=== PATIENT | female | born 1950 | race African-American/Black ===

== ENCOUNTER 2016-08-18 17:20 | Emergency (ER) ==
[2016-08-18 17:39] LABS: URINE SOURCE CLEAN CATCH
[2016-08-18 18:05] LABS: BILIRUBIN URINE NEGATIVE (NEGATIVE); BLOOD URINE NEGATIVE (NEGATIVE); CLARITY SL. CLOUDY (CLEAR); COLOR AMBER; GLUCOSE URINE NEGATIVE (NEGATIVE); LEUKOCYTES URINE 2+ (NEGATIVE); NITRITE URINE NEGATIVE (NEGATIVE); PH URINE 6.5; PROTEIN URINE 1+(30 mg/dL) mg/dL (NEGATIVE); SP GRAVITY URINE 1.015
[2016-08-18 18:17] LABS: URINE CRYSTAL URIC ACID PRESENT /HPF; URINE CULTURE PL NEEDED? YES; URINE EPITHELIAL CELLS >10 /HPF (<10)
[2016-08-18 18:18] LABS: UROBILINOGEN URINE 3+(8 mg/dL)
[2016-08-18 18:29] LABS: MANUAL DIFF NEEDED? NO
[2016-08-18 18:30] LABS: BASO% 0.4 % (0.0-0.8); EOS# 0.08 X1000 (0.0-0.7); EOS% 0.8 % (0.0-10.0); HEMOGLOBIN 10.3 g/dL (12.0-16.0); IMM GRAN# 0.01 X1000 (0.0-0.04); IMM GRAN% 0.1 % (0.0-0.5); LYMPH# 1.33 X1000 (1.2-3.4); MCH 27.3 PG (27-31); MCHC 33.2 g/dL (33-37); MCV 82.2 FL (81-99); MONO# 1.01 X1000 (0.11-0.59); MONO% 9.9 % (1.7-9.3); MPV 9.1 FL (7.4-10.4); NEUT% 75.8 % (42.2-75.2); PLT 272 X1000 (130-400); RBC 3.77 XMIL (4.2-5.4)
[2016-08-18 19:10] LABS: ALBUMIN 3.6 g/dL (3.5-5.0); POTASSIUM 3.3 mmol/L (3.5-5.1); TOTAL BILIRUBIN 0.5 mg/dL (0.20-1.00); TOTAL PROTEIN 7.6 g/dL (6.3-8.3)
--- NOTE | 2016-08-18 20:17 | PROVIDER DOCUMENTATION ---
HPI-Abdominal Pain/GI Problem - General Chief Complaint: Epigastric Pain Stated Complaint: ABD PAIN/UPPER Time Seen by Provider: 08/18/16 18:51 Source: patient Allergies/Adverse Reactions: Patient Allergies Allergy/AdvReac Type Severity Reaction Status Date / Time No Known Allergies Allergy Verified 08/18/16 18:01 Home Medications: Home Medication List Medication Instructions Recorded Confirmed Last Taken Type Aspirin 325 mg PO DAILY 02/22/16 02/23/16 02/23/16 08:00 History Diclofenac Sodium 50 mg PO DAILY 02/22/16 02/23/16 02/23/16 08:00 History Metoprolol [Lopressor] 100 mg PO BID 02/22/16 02/23/16 02/23/16 08:00 History Ranitidine [Zantac] 300 mg PO QHS 02/22/16 02/23/16 02/23/16 08:00 History Triamterene/Hydrochlorothiazid 1 each PO DAILY 02/22/16 02/23/16 02/23/16 08:00 History [Triamterene-Hctz 37.5-25 mg Cp] Hydrocodone/Acetaminophen [[place] 1 each PO Q4H PRN PRN #30 tablet 02/23/16 Unknown Rx 5-325 Tablet] - History of Present Illness-ABD Nature of Presenting Problems: pt is a 66yof presenting to the ed c/o abd pain. pt states that she has abd pain. pt denies n/v/d or any other complaints. she has pain in her epigastric area thru to her back but no fever or other complaints. Abdominal Pain Onset Location: reports: epigastric Pain Radiation: reports: back Quality of Pain: reports: aching, cramping, fullness Severity in ED: reports: moderate Onset/Duration: reports: 24 hours ago Timing: reports: still present Activities at Onset: reports: light activity Exposure to sick contacts?: No Modifying Factors: improves with: nothing Associated Symptoms: reports: back/neck pain. denies: chest pain, diarrhea, nausea, shortness of breath, vomiting Last BM: unsure Dark Stools Present?: reports: none noticed Rectal Bleeding: reports: none Rectal Pain: reports: none Emesis Description: reports: none Bruising or Bleeding Gums?: No Similar Symptoms Previously?: No Recently seen or treated by another doctor?: No Review of Systems - Adult - REVIEW OF SYSTEMS - ADULT Constitutional: reports: no symptoms reported Eyes: reports: no symptoms reported Ears, Nose, Mouth & Throat: reports: no symptoms reported Cardiovascular: reports: no symptoms reported Respiratory: reports: no symptoms reported Gastrointestinal: reports: see HPI, abdominal pain. denies: constipation, diarrhea, nausea, vomiting Genitourinary: reports: no symptoms reported Musculoskeletal: reports: see HPI, back pain. denies: joint pain, neck pain Integumentary: reports: no symptoms reported Neurological: reports: no symptoms reported Psychiatric: reports: no symptoms reported Endocrine: reports: no symptoms reported Hematologic/Lymphatic: reports: no symptoms reported Allergic/Immunologic: reports: no symptoms reported All Other Systems: Reviewed and Negative Past History - Adult - PAST MEDICAL HISTORY-ADULT Review of Records: reports: Old Records Reviewed, Nursing Assessment Review, Medications Reviewed, Social history reviewed & non-contributory. Major Childhood Illnesses: reports: denies history Cardiovascular: reports: denies history Respiratory: reports: denies history Gastrointestinal: reports: denies history Obstetrical/Gynecological: reports: denies history Genitourinary: reports: denies history Musculoskeletal: reports: denies history Neurological: reports: denies history Endocrine/Immune: reports: denies history Other Conditions: reports: denies history - IMMUNIZATION STATUS Childhood Immunizations: See Nurse Assessment Flu Vaccine: See Nurse Assessment - FAMILY HISTORY Family History: reviewed, not pertinent - SOCIAL HISTORY Smoking: denies, non-smoker Substance Use: none/never, denies Alcohol Use Frequency: never Living Situation: family Physical Exam-General - PHYSICAL EXAM-ADULT Initial Vital Signs Reviewed: Yes - CONSTITUTIONAL General Appearance: alert, mild distress. negative: appears well - EYES Eyes: PERRL/EOMI, pink conjunctivae, fundi clear, no AV nicking - HEAD, EARS, NOSE, MOUTH & THROAT HENMT: normocephalic/atraumatic, moist mucous membranes, normal ENT inspection, TMs normal, pharynx normal - NECK Neck: non-tender, full range of motion, supple, normal inspection - RESPIRATORY Respiratory: chest non-tender, lungs clear, normal breath sounds, no pleuratic chest pain, no respiratory distress, no accessory muscle use - CARDIOVASCULAR Cardiovascular: normal peripheral pulses, regular rate, rhythm, no edema, no gallop, no JVD, no murmur - GASTROINTESTINAL (ABDOMEN) Abdominal Exam: normal bowel sounds, soft, no organomegaly, no pulsatile mass, tenderness. 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, grossly normal, no motor/sensory deficits - PSYCHIATRIC Psych/Mental Status: normal mood/affect, normal thought content, normal thought process, oriented x 3 Progress - PLAN OF CARE/RESULTS Progress/Plan/Lab Results: Laboratory Tests 08/18/16 08/18/16 08/18/16 17:29 18:21 18:21 WBC 10.21 RBC 3.77 L Hgb 10.3 L Hct 31.0 L MCV 82.2 MCH 27.3 MCHC 33.2 RDW Std Deviation 13.9 Plt Count 272 MPV 9.1 Immature Gran % (Auto) 0.1 Neut % (Auto) 75.8 H Lymph % (Auto) 13.0 L Pettis % (Auto) 9.9 H Eos % (Auto) 0.8 Baso % (Auto) 0.4 Immature Gran # (Auto) 0.01 Neut # (Auto) 7.74 H Lymph # (Auto) 1.33 Pettis # (Auto) 1.01 H Eos # (Auto) 0.08 Baso # (Auto) 0.04 Sodium 134 L Potassium 3.3 L Chloride 94 L Carbon Dioxide 26 Anion Gap 14 BUN 19 Creatinine 1.1 H Estimated GFR/1.73 m2 50 BUN/Creatinine Ratio 17 Glucose 90 Calculated Osmolality 270 Calcium 9.0 Total Bilirubin 0.50 AST 159 H ALT 111 H Alkaline Phosphatase 106 H Total Protein 7.6 Albumin 3.6 Globulin 4.0 Albumin/Globulin Ratio 1.0 Amylase 255 H Lipase 162 H Urine Source CLEAN CATCH Urine Color BARBIE Urine Clarity SL. CLOUDY A Urine pH 6.5 Ur Specific [place] 1.015 Urine Protein 1+(30 mg/dL) A Urine Ketones TRACE Urine Blood NEGATIVE Urine Nitrite NEGATIVE Urine Bilirubin NEGATIVE Urine Urobilinogen 3+(8 mg/dL) Urine Microscopic RBC Not Reportable Urine WBC 2+ A Urine Microscopic WBC 10-20 A Ur Epithelial Cells >10 A Urine Crystals URIC ACID PRESENT Urine Bacteria 1+ Urine Glucose NEGATIVE Orders Category Date Time Status NPO Diet 08/18/16 17:25 Active FLAT/UPRIGHT ABD/1 VIEW CHEST [RAD] Stat Exams 08/18/16 17:25 Taken AMYLASE [CHEM] Stat Lab 08/18/16 18:21 Completed CBC WITH ELECTRONIC DIFF [HEME] Stat Lab 08/18/16 18:21 Completed COMPREHENSIVE METABOLIC PANEL [CHEM] Stat Lab 08/18/16 18:21 Completed LIPASE [CHEM] Stat Lab 08/18/16 18:[address] W/POSS RFLX CULT [URINALYSIS] Stat Lab 08/18/16 17:29 Completed URINE CULTURE [RM] Routine Lab 08/18/16 18:18 Ordered Vital Signs - 24 hr 08/18/16 17:22 Temperature 97.2 F L Pulse Rate 81 Respiratory 18 Rate Blood Pressure 125/75 O2 Sat by Pulse 98 Oximetry Departure - Departure Time of Disposition Order: 20:51 DIAGNOSIS: Abdominal pain Qualifiers: Abdominal location: unspecified location Qualified Code(s): R10.9 - Unspecified abdominal pain Abdominal mass Qualifiers: Abdominal location: unspecified location Qualified Code(s): R19.00 - Intra- abdominal and pelvic swelling, mass and lump, unspecified site Disposition: HOME 01 Certified Medical Emergency: Emergent Condition: Stable Additional Instructions: ED Follow Up Instructions: You have been treated by a care provider in the Emergency Department. These instructions are being provided to you so you can have an understanding of how to care for yourself upon discharge. Upon discharge from the Emergency Department, you are responsible for making arrangements for follow-up care by a physician of your choice. Take all prescribed medications as directed. Return to the Emergency Department immediately for any new or worsening symptoms. You may call the Physician Referral phone number at [phone] to obtain a list of Physicians who are taking new patients. Attestation - Scribe Verification/Attestation Scribe:: Awilda Castro Acting as Scribe for:: Francisco Hunter Scribe documention review:: This chart was documented by a scribe and accurately reflects the service the provider performed and the decisions made by the provider. Physician Attestation - Physician Attestation I, the provider, attest to the following statement:: Francisco Hunter Physician documentation Attestation:: This documentation recorded by the scribe accurately reflects the service I personally performed and the decisions made by me.
[2016-08-18 21:01] VITALS: BP 107/61
--- NOTE | 2016-08-19 08:59 | Diag Imaging Result Document ---
PROCEDURE NAME: FLAT/UPRIGHT ABD/1 VIEW CHEST - 08/18/2016 FRONTAL CHEST X-RAY AND 2 VIEWS OF THE ABDOMEN: COMPARISON: CT from 02/04/2016. FINDINGS: There is some chronic atelectasis or scarring in the left lung base laterally similar to prior. Heart size is normal. No new infiltrates. There is oral contrast material throughout the colon. This fills a normal appendix. No bowel obstruction or free air. Stable dystrophic calcifications in the pelvis from degenerating uterine fibroids. IMPRESSION: No acute disease or change from prior.
== END 2016-08-18 21:05 | disposition home or self-care (01) ==
LOC: P.ED 17:20
DX: R10.13 Epigastric pain (principal); R19.00 Intra-abdominal and pelvic swelling, mass and lump, unspecified site; M54.9 Dorsalgia, unspecified; R10.819 Abdominal tenderness, unspecified site; Z79.82 Long term (current) use of aspirin; Z79.899 Other long term (current) drug therapy
CPT/HCPCS: 74022; 80053; 81001; 82150; 83690; 85025; 87088; 99284

== ENCOUNTER 2016-11-03 19:35 | Inpatient (IN) ==
[2016-11-03] MEDS ORDERED: ASPIRIN PO STA (20:05)
[2016-11-03 21:02] LABS: INR 1.12; PROTIME 11.8 Seconds (9.2-11.7); PTT 30.6 Seconds (22.0-36.0)
[2016-11-03 21:08] LABS: BASO% 1.1 % (0.0-0.8); EOS# 0.02 X1000 (0.0-0.7); EOS% 0.1 % (0.0-10.0); HEMATOCRIT 26.1 % (37.0-47.0); HEMOGLOBIN 8.7 g/dL (12.0-16.0); IMM GRAN# 2.19 X1000 (0.0-0.04); IMM GRAN% 7.8 % (0.0-0.5); LYMPH# 4.02 X1000 (1.2-3.4); LYMPH% 14.2 % (20.5-51.1); MANUAL DIFF NEEDED? NO; MCH 29.8 PG (27-31); MCHC 33.3 g/dL (33-37); MCV 89.4 FL (81-99); MONO# 3.93 X1000 (0.11-0.59); MONO% 13.9 % (1.7-9.3); MPV 9.4 FL (7.4-10.4); NEUT% 62.9 % (42.2-75.2); PLT 504 X1000 (130-400); RBC 2.92 XMIL (4.2-5.4)
[2016-11-03 21:20] LABS: AGAP 16; ALBUMIN 2.9 g/dL (3.5-5.0); ALKALINE PHOSPHATASE 241 U/L (32-104); BUN 18 mg/dL (8-22); CALCIUM 9.3 mg/dL (8.8-10.2); CHLORIDE 90 mmol/L (98-107); CK PROFILE 42 U/L (24-173); COSMO 266; GOT 61 U/L (10-30); GPT 14 U/L (10-36); MAGNESIUM 1.7 mg/dL (1.5-2.7); POTASSIUM 3.7 mmol/L (3.5-5.1); SODIUM 132 mmol/L (136-145); TCO2 26 mmol/L (25-35); TOTAL BILIRUBIN 1.17 mg/dL (0.20-1.00); TOTAL PROTEIN 7.4 g/dL (6.3-8.3)
[2016-11-03] MEDS: LEVAQUIN 750 MG/D5W 750 MG/150 ML IVPB IV SCH (23:10)
[2016-11-03] MEDS ORDERED: TYLENOL PO PRN (23:45)
[2016-11-03] MEDS ORDERED: DUONEB (A & A) INH PRN (23:45)
[2016-11-03] MEDS ORDERED: NS 1,000 ML IV ONE (23:45)
[2016-11-03] MEDS ORDERED: ZOFRAN IV PRN (23:45)
[2016-11-04 00:39] LABS: URINE SOURCE CLEAN CATCH
[2016-11-04 01:06] LABS: BILIRUBIN URINE NEGATIVE (NEGATIVE); BLOOD URINE NEGATIVE (NEGATIVE); COLOR YELLOW; GLUCOSE URINE NEGATIVE (NEGATIVE); LEUKOCYTES URINE MODERATE (NEGATIVE); NITRITE URINE NEGATIVE (NEGATIVE); PH URINE 6.5; PROTEIN URINE TRACE mg/dL (NEGATIVE); SP GRAVITY URINE 1.018; TURBIDITY URINE HAZY (CLEAR); UROBILINOGEN URINE 2 mg/dL (NORMAL)
[2016-11-04 01:07] LABS: URINE MICRO REVIEW NEEDED? YES
[2016-11-04 01:11] LABS: UR EPITHELIAL CELLS <10 /HPF (<10); URINE BACTERIA NEGATIVE /HPF; URINE CULTURE NEEDED? YES; URINE RBC <10 /HPF (<10)
[2016-11-04 01:19] LABS: URINE CRYSTALS NONE SEEN
[2016-11-04] MEDS: NS 1,000 ML IV SCH ×2 (01:28→12:14)
[2016-11-04] MEDS: PROTONIX IV SCH ×2 (01:29→22:57)
[2016-11-04] MEDS: LOVENOX SUBQ SCH ×2 (01:29→22:57)
[2016-11-04] MEDS: MAXIPIME 1 GM/NS 1 GM/50 ML IVPB IV SCH ×3 (01:29→22:57)
--- NOTE | 2016-11-04 01:43 | HISTORY AND PHYSICAL ---
PRIMARY CARE PROVIDER: Dr. Faby Brink. ONCOLOGIST: Dr. Ventura. CHIEF COMPLAINT: Shortness of breath. HISTORY OF PRESENT ILLNESS: Ms. Soriano is a 66-year-old female , who is currently receiving chemotherapy for breast cancer, with metastasis to the liver. She received her last chemotherapy treatment on October 26. Patient also states that she did receive possibly a Neupogen injection for a low white blood cell count at her oncologist's office this week as well. She presents to the ED complaining of shortness of breath, productive cough with white sputum, and chills for 3 days. She denied any known fever. She also denies any headache, dizziness, chest pain, abdominal pain, nausea, vomiting, diarrhea, or constipation. She denied any dysuria or urinary frequency. She denied any pain, numbness, or tingling in extremities. Upon further evaluation in the ER, the patient was found to have a leukocytosis with a white blood cell count of 28.24. She did have a low-grade fever upon presentation of 99.9, with a heart rate of 116, respirations 19, blood pressure 120/65, and oxygen saturation of 86% on room air. She has since been placed on a nasal cannula at 3 L, and oxygen saturations have improved to 93%. Her chest x-ray showed bilateral upper lobe pneumonia. At this time, the patient will be admitted for further treatment of her pneumonia and we will consult Dr. Ventura for further management of her breast cancer as well. REVIEW OF SYSTEMS: A 12-point review of systems was conducted with the patient. All were negative, except for pertinent positives mentioned in the above HPI. PAST MEDICAL HISTORY: 1. Breast cancer, with metastasis to the liver. Currently, receiving chemotherapy with Dr. Ventura. 2. Hypertension. PAST SURGICAL HISTORY: 1. Right total knee replacement. 2. Breast and liver biopsy. 3. Right chest port placement. SOCIAL HISTORY: The patient is a former smoker. She reports that she only smoked for approximately 3 months, and quit quite a long time ago. She denied any alcohol or illicit drug use. PAST FAMILY MEDICAL HISTORY: She reported that her mother had a history of what she thought was possibly narcolepsy. She reports that her father had a history of alcoholism, and states that her siblings are healthy, with no known medical problems. She denied any known family medical history of cancer. ALLERGIES: Patient reports no known allergies. HOME MEDICATIONS: 1. Aspirin 325 mg p.o. daily. 2. Lopressor 50 mg p.o. b.i.d. 3. Protonix 40 mg p.o. daily. 4. Dyazide 37.5-25 mg capsule 1 p.o. daily. DIAGNOSTIC DATA AND LABORATORY RESULTS: White blood cell count 28.24, hemoglobin 8.7, hematocrit 26.1, platelet count 504,000. PT 11.8, INR 1.12, PTT 30.6. Sodium 132, potassium 3.7, chloride 90, bicarb 26, BUN 18, creatinine 0.9, glucose 98, calcium 9.3, magnesium 1.7. Total bilirubin is 1.17. AST 61, ALT 14, alkaline phosphatase 241. CK is 42. Troponin less than 0.01. ProBNP 66. A chest x-ray showed bilateral upper lobe pneumonia. No other acute abnormalities noted. We are awaiting official radiology overread. Pending diagnostic studies at this time are: EKG, urinalysis, blood culture, and sputum culture. PHYSICAL EXAMINATION: VITAL SIGNS: Temperature 98.9 degrees, heart rate 110, respirations 18, blood pressure 112/75, oxygen saturation 93% nasal cannula at 3 L. GENERAL: Ms. Soriano is a pleasant 66-year-old female who is resting comfortably in the ER stretcher. She was in no acute distress. She was awake, alert, and able to answer all questions appropriately. HEENT: Head is atraumatic, normocephalic. Pupils are equal, round, reactive to light, with 3 mm bilaterally and brisk. Subconjunctivae were slightly pale. Oropharynx was clear. Oral mucosa was slightly dry. NECK: Supple. Trachea midline. CARDIOVASCULAR: Patient has a normal S1, S2. No murmurs, gallops, or rubs appreciated, with a slightly tachycardic rate that is regular. PULMONARY: Patient has symmetrical chest expansion bilaterally. She has fine crackles noted in bilateral full lung chavez. ABDOMEN: Soft, nontender, nondistended. Bowel sounds are present in all 4 quadrants, normoactive. EXTREMITIES: No cyanosis, clubbing, or edema noted. Pulse, motor, and sensory were intact in all extremities. Pedal pulses were 3+ bilaterally. INTEGUMENTARY: Patient's skin color is normal for her race. Dry and intact. NEUROLOGICAL: Patient is alert, oriented x4. Cranial nerves 2-12 are grossly intact. ASSESSMENT AND PLAN: 1. Bilateral upper lobe pneumonia. Given that the patient is currently receiving active chemotherapy, we will go ahead and cover her with cefepime 1 g IV q.12 hours , as well as Levaquin 750 mg IV q.24 hours. Blood cultures as well as sputum cultures have been placed. We will continue with aggressive pulmonary toilet, and have ordered DuoNeb treatments q.4-6 hours p.r.n. as needed, and will continue to monitor her respiratory status closely. 2. Breast cancer, with metastasis to the liver. The patient is followed by Dr. Ventura. She is receiving chemotherapy at this time. We have placed a consult with Dr. Ventura, and will await his evaluation and further recommendations for management. 3. Leukocytosis, possibly related to her pneumonia, though the patient did report that she received an injection for a low white blood cell count, which was possibly Neupogen. This could be related to this as well. We will continue her treatment as mentioned per #1, and continue to follow. 4. Hypertension. We will continue with her blood pressure medicines of metoprolol and Dyazide. The patient was placed on the medical floor with telemetry. She will have vital signs q.6 hours. We will do a strict intake and output. She will be on regular diet. We will repeat a CBC and CMP in the morning. For DVT prophylaxis, she will receive Lovenox 40 mg subcutaneously q.24 hours, and for GI prophylaxis she will receive Protonix 40 mg IV q.24 hours. The patient was slightly tachycardic, and did have a slightly dry oral mucosa. We will give her gentle fluid resuscitation with normal saline at 100 mL/h. X2 bags, and will continue to follow as well. Further orders and recommendations pending hospital course, diagnostic studies, and physician evaluation. Dictated by KORY Thomas for Sanjeev Castrejon MD Seen and examined pt with MEMORIAL COUNSELOR. Discussed above plan of care with MEMORIAL COUNSELOR. cc: Sanjeev Castrejon MD [facility]
--- NOTE | 2016-11-04 05:26 | EKG Report ---
Test Performed on : 11/03/2016 7:44:36 PM Test Reason : SOB Blood Pressure : / mmHG Vent. Rate : 118 BPM Atrial Rate : 118 BPM P-R Int : 136 ms QRS Dur : 074 ms QT Int : 328 ms P-R-T Axes : 059 003 100 degrees QTc Int : 459 ms Sinus tachycardia. Nonspecific T wave abnormality Abnormal ECG When compared with ECG of 22-FEB-2016 11:21, Vent. rate has increased BY 58 BPM Nonspecific T wave abnormality has replaced inverted T waves in Anterior leads Unconfirmed Result
[2016-11-04 06:26] LABS: BASO% 0.7 % (0.0-0.8); EOS# 0.03 X1000 (0.0-0.7); EOS% 0.1 % (0.0-10.0); HEMATOCRIT 23.8 % (37.0-47.0); HEMOGLOBIN 7.9 g/dL (12.0-16.0); IMM GRAN# 2.22 X1000 (0.0-0.04); IMM GRAN% 7.7 % (0.0-0.5); LYMPH# 4.36 X1000 (1.2-3.4); LYMPH% 15.1 % (20.5-51.1); MANUAL DIFF NEEDED? YES; MCHC 33.2 g/dL (33-37); MCV 90.5 FL (81-99); MONO% 12.8 % (1.7-9.3); MPV 9.4 FL (7.4-10.4); NEUT% 63.6 % (42.2-75.2); PLT 463 X1000 (130-400); RBC 2.63 XMIL (4.2-5.4)
[2016-11-04 06:58] LABS: BANDS 10 % (0-1); LYMPHS 16 % (21-51); MONO 10 % (1-9); NRBC 7 % (0-0); POLYCHROM 1+
[2016-11-04 07:05] LABS: AGAP 13; ALBUMIN 2.3 g/dL (3.5-5.0); ALKALINE PHOSPHATASE 210 U/L (32-104); BUN 15 mg/dL (8-22); CALCIUM 8.4 mg/dL (8.8-10.2); CHLORIDE 93 mmol/L (98-107); COSMO 261; GOT 52 U/L (10-30); GPT 12 U/L (10-36); POTASSIUM 3.1 mmol/L (3.5-5.1); SODIUM 130 mmol/L (136-145); TCO2 24 mmol/L (25-35); TOTAL BILIRUBIN 1.05 mg/dL (0.20-1.00); TOTAL PROTEIN 6.5 g/dL (6.3-8.3)
--- NOTE | 2016-11-04 07:28 | Diag Imaging Result Doc PS360 ---
EXAM: CHEST-2 VIEWS HISTORY: CP TECHNIQUE: AP upright and lateral COMMENT: There are ill-defined opacities in both upper lobes consistent with bronchopneumonia. This was not present on 09/14/2016. IMPRESSION: Bilateral upper lobe pneumonia. Electronically signed by Krish Greer 11/04/2016 7:25 AM
[2016-11-04] MEDS ORDERED: DYAZIDE PO SCH (09:00)
[2016-11-04] MEDS: LOPRESSOR PO SCH ×2 (09:57→21:43)
[2016-11-04] MEDS ORDERED: KLOR-CON PO ONE (11:33)
[2016-11-04] MEDS ORDERED: VANCOMYCIN IV PER PHARMACY MISC SCH (11:45)
--- NOTE | 2016-11-04 12:04 | PROGRESS NOTE ---
DATE: 11/04/2016 SUBJECTIVE: Today, Ms. Soriano refers to be doing a little better. Continues to have some dry cough. No fever. OBJECTIVELY: Vital Signs: Blood pressure is 108/55, pulse of 94, respirations 18, and temperature is 98.7 degrees. General: Ms Soriano is a 66-year-old female. She is in bed, does not seem to be in any remarkable distress. HEENT: Mucosa pink and moist. Anicteric. Acyanotic. The patient has also a bald head, I think due to chemotherapy. Neck: Supple. Chest: Air entry is bilaterally reduced. Some bilateral posterior crepitations. Cardiovascular: Regular rate and rhythm. Abdomen: Soft, nontender. Extremities: No pedal edema. Central Nervous System: Patient is alert and oriented x4. Chest Wall : Patient does have a port in the right upper chest wall. LABORATORY DATA: WBC is 28.80, hemoglobin is 7.9, platelet count of 463,000. The patient has 10% bands on peripheral smear. Sodium is 130, potassium is 3.1, chloride is 91, and bicarbonate is 24. IMAGING: X-ray yesterday showed bilateral upper lobe pneumonia. ASSESSMENT: 1. Acute hypoxemic respiratory failure. Patient presented with an O2 saturation of 86%. This has progressively improved with oxygen. 2. Bilateral upper lobe pneumonia. We are treating this as healthcare- associated pneumonia. 3. History of metastatic breast cancer to the liver, ER positive, CA positive, and H2 positive. The patient follows up with Dr. Gigi Ventura. 4. Sepsis on presentation due to underlying pneumonia, systemic inflammatory response syndrome criteria, now improving. So, I think, in general, Ms. Soriano is doing a whole lot better. She is currently on cefepime and levofloxacin. We will add vancomycin for MRSA coverage, since patient has been in contact with the health system for some time, getting chemotherapy. She does have some mild hyponatremia and hypokalemia. I think this is all due to diuretic side effects. Will discontinue that and hydrate and replace all of her electrolyte abnormalities. cc: Florentin Velasquez MD [facility]
[2016-11-04] MEDS ORDERED: VANCOMYCIN 1,450 MG in NS 250 ML IV ONE (14:00)
--- NOTE | 2016-11-04 14:32 | CONSULTATION ---
DATE OF CONSULTATION: 11/04/2016 PRIMARY CARE PROVIDER: Faby Brink MD. ADMITTING PHYSICIAN: Dr. Castrejon. REQUESTING PHYSICIAN: Dr. Castrejon. ONCOLOGIST: Dr. Ventura. We appreciate this consult. CHIEF COMPLAINT: Metastatic breast cancer. HISTORY OF PRESENT ILLNESS: Ms. Soriano is a very pleasant, 66-year-old female who is well known to Dr. Ventura with a history of metastatic breast cancer to the liver. She is status post cycle 1, day 15 of per Perjeta, Herceptin, and Taxol on October 26, 2016. Thereafter, she had Neulasta on October 27, 2016 and Aranesp on November 02, 2016. The patient presented to [facility] Emergency Department secondary to shortness of breath, productive cough of white sputum, and chills for 3 days prior to presentation. Upon presentation the patient was found to have leukocytosis with a white blood cell count of 28.24. Additionally, she had a low-grade fever of 99.9. The patient underwent chest x-ray which revealed bilateral upper lobe pneumonia. The patient is admitted for treatment of the same. PAST MEDICAL HISTORY: 1. Breast cancer with metastasis to the liver. Currently on Perjeta, Herceptin, and Taxol; last treatment being 10/26/2016. 2. Hypertension. 3. Nicotine dependence. PAST SURGICAL HISTORY: 1. Right total knee replacement. 2. Breast and liver biopsy. 3. Right chest port placement. FAMILY HISTORY: Negative for any hematologic or oncologic problems. SOCIAL HISTORY: The patient is a former smoker. She denies any alcohol or illicit drug use. MEDICATIONS: On admission: 1. Aspirin 325. 2. Lopressor. 3. Protonix. 4. Dyazide. ALLERGIES: The patient has no known drug allergies. REVIEW OF SYSTEMS: A 14-point review of systems was obtained and is negative except for as mentioned in HPI. PHYSICAL EXAMINATION: General: Ms. Soriano is a very pleasant, 66-year-old female, lying supine in bed, in no immediate distress. Vital Signs: Temperature 98.3, blood pressure 108/55, heart rate 94, respirations 18, O2 saturation is 95% on 3 L nasal cannula O2. HEENT: Normocephalic, atraumatic. Mucous membranes are pale and moist. Sclerae are anicteric. Extraocular movements intact. Neck: Supple. Lungs: Clear to auscultation bilaterally. Chest expansion is equal bilaterally. CV: S1, S2 is heard without murmur, rub, or gallop. Abdomen: Soft, nondistended, nontender. Bowel sounds positive in all quadrants. No rebound or guarding noted. Extremities: Without clubbing, cyanosis, or edema. Dermatologic: No rashes, bruises, or lesions. Neurologic: The patient is awake, alert, and oriented x3. She has no focal motor deficit at this time. LABORATORY DATA: Hemoglobin 7.9, hematocrit 23.8, white blood cell count is 28.80, platelets 463,000, ANC is 18.28. Sodium 130, potassium 3.1, chloride 24, CO2 is 13, BUN 15, creatinine 0.8, glucose is 87, bilirubin is 1.05, alkaline phosphatase is 210, AST 52, ALT 12. Urinalysis shows moderate leukocytes; culture is pending. Blood culture is pending. ASSESSMENT AND PLAN: 1. Metastatic breast cancer status post cycle 1, day 15 of Perjeta, Herceptin, and Taxol on October 26 with Neulasta on October 27 and Aranesp on November 02. We will hold treatment until the patient's acute illness passes. 2. Bilateral upper lobe pneumonia. Currently on cefepime and Levaquin. We will monitor chest x- ray. 3. Leukocytosis secondary to #2 as well as Neulasta effect. We will continue to monitor white blood cell count. 4. Hypertension. Well controlled on antihypertensives. 5. Hyponatremia. The patient is currently on normal saline intravenous fluids. Would continue to monitor sodium. 6. Hypokalemia. Will replete per protocol. We will continue to monitor potassium. 7. Anemia with a hemoglobin of 7.9. We will continue to monitor and transfuse if patient's hemoglobin is found to be below 8.0. We will follow along with you and make further recommendations pending outcomes. Dictated by KORY Tate for Chayito Real MD cc: KORY Tate MD
[2016-11-04] MEDS: SODIUM CHLORIDE 0.9% INJ SCH (22:57)
[2016-11-04] MEDS: LEVAQUIN 750 MG/D5W 750 MG/150 ML IVPB IV SCH (23:42)
[2016-11-05 06:17] LABS: AGAP 11; ALBUMIN 2.2 g/dL (3.5-5.0); ALKALINE PHOSPHATASE 207 U/L (32-104); BUN 11 mg/dL (8-22); CALCIUM 8.4 mg/dL (8.8-10.2); CHLORIDE 95 mmol/L (98-107); COSMO 261; GOT 52 U/L (10-30); GPT 13 U/L (10-36); MAGNESIUM 1.6 mg/dL (1.5-2.7); POTASSIUM 3.3 mmol/L (3.5-5.1); SODIUM 131 mmol/L (136-145); TCO2 25 mmol/L (25-35); TOTAL BILIRUBIN 0.98 mg/dL (0.20-1.00); TOTAL PROTEIN 6.1 g/dL (6.3-8.3)
[2016-11-05 07:00] LABS: BASO% 0.5 % (0.0-0.8); EOS# 0.03 X1000 (0.0-0.7); EOS% 0.1 % (0.0-10.0); HEMATOCRIT 24.1 % (37.0-47.0); HEMOGLOBIN 7.8 g/dL (12.0-16.0); IMM GRAN# 1.55 X1000 (0.0-0.04); IMM GRAN% 5.8 % (0.0-0.5); LYMPH# 3.05 X1000 (1.2-3.4); LYMPH% 11.5 % (20.5-51.1); MANUAL DIFF NEEDED? YES; MCH 29.7 PG (27-31); MCHC 32.4 g/dL (33-37); MCV 91.6 FL (81-99); MONO# 3.16 X1000 (0.11-0.59); MONO% 11.9 % (1.7-9.3); MPV 9.1 FL (7.4-10.4); NEUT% 70.2 % (42.2-75.2); PLT 406 X1000 (130-400); RBC 2.63 XMIL (4.2-5.4)
[2016-11-05 07:38] LABS: BANDS 2 % (0-1); LYMPHS 8 % (21-51); MONO 14 % (1-9); NRBC 1 % (0-0)
[2016-11-05 07:41] LABS: HYPOCHROM 1+; POLYCHROM 1+
[2016-11-05] MEDS: LOPRESSOR PO SCH ×3 (08:51→22:45)
[2016-11-05] MEDS ORDERED: KLOR-CON PO ONE (09:49)
[2016-11-05] MEDS: MAXIPIME 1 GM/NS 1 GM/50 ML IVPB IV SCH ×2 (11:38→22:56)
--- NOTE | 2016-11-05 14:57 | PROGRESS NOTE ---
DATE: 11/05/2016 SUBJECTIVE: Today Ms. Soriano referred to be doing a lot better. No more coughing and no fever. OBJECTIVE: Vital signs: Blood pressure is 126/72, pulse of 88, respirations 17, temperature 98.1 degrees. General: Ms. Soriano is a 66-year-old female. She is in bed, no distress. HEENT: Mucosa is pink and moist. Anicteric. Acyanotic. Neck: Supple. Chest: Good air entry bilaterally. There is a few bibasilar crepitations. Cardiovascular: Regular rate and rhythm. Abdomen: Soft, nontender. Extremities: No pedal edema. CROCHET BEADER: Patient is alert and oriented x4. Skin: There is a port on the right upper chest wall looks clean. LABORATORY DATA: WBC is 26.59, hemoglobin is 7.8, platelet count of 409,000, there is only 2% of bands on peripheral smear. Chemistry is reviewed. Sodium is 131, potassium is 3.3, chloride 95. ASSESSMENT: 1. Acute hypoxemic respiratory failure. This is improved. 2. Bilateral upper lobe pneumonia considered to be healthcare associated. Patient is getting IV antibiotics. 3. History of metastatic breast cancer to liver, HR positive, MO positive and HER-2 positive. Patient follows up with Dr. Ventura. 4. Sepsis on presentation due to underlying pneumonia improved. PLAN: Today Ms. Soriano is doing a whole lot better. We are going to continue with the current IV antibiotics for another 24 hours. WBC is trending down and there is only 2% of bands on peripheral smear. She continues to be afebrile. I anticipate that hopefully by tomorrow or Monday we might be able to discharge the patient. cc: Florentin Velasquez MD
[2016-11-05] MEDS: VANCOMYCIN 1 GM/NS 1 GM/250 ML IVPB IV SCH (15:12)
[2016-11-05] MEDS: LEVAQUIN 750 MG/D5W 750 MG/150 ML IVPB IV SCH (22:56)
[2016-11-05] MEDS: SODIUM CHLORIDE 0.9% INJ SCH (22:59)
[2016-11-05] MEDS: PROTONIX IV SCH (22:59)
[2016-11-05] MEDS: LOVENOX SUBQ SCH (22:59)
[2016-11-06 06:14] LABS: BASO% 0.5 % (0.0-0.8); EOS# 0.06 X1000 (0.0-0.7); EOS% 0.2 % (0.0-10.0); HEMATOCRIT 25.3 % (37.0-47.0); HEMOGLOBIN 8.1 g/dL (12.0-16.0); IMM GRAN# 1.38 X1000 (0.0-0.04); IMM GRAN% 5.6 % (0.0-0.5); LYMPH# 2.66 X1000 (1.2-3.4); LYMPH% 10.9 % (20.5-51.1); MANUAL DIFF NEEDED? YES; MCH 29.9 PG (27-31); MCV 93.4 FL (81-99); MONO# 2.46 X1000 (0.11-0.59); MPV 9.3 FL (7.4-10.4); NEUT% 72.8 % (42.2-75.2); PLT 356 X1000 (130-400); RBC 2.71 XMIL (4.2-5.4)
[2016-11-06 06:15] LABS: AGAP 12; BUN 10 mg/dL (8-22); CALCIUM 8.5 mg/dL (8.8-10.2); CHLORIDE 100 mmol/L (98-107); COSMO 268; POTASSIUM 3.8 mmol/L (3.5-5.1); SODIUM 135 mmol/L (136-145); TCO2 23 mmol/L (25-35)
[2016-11-06 07:12] LABS: BANDS 4 % (0-1); LYMPHS 12 % (21-51); MONO 10 % (1-9)
[2016-11-06] MEDS: LOPRESSOR PO SCH ×2 (09:17→21:10)
[2016-11-06] MEDS: MAXIPIME 1 GM/NS 1 GM/50 ML IVPB IV SCH ×2 (11:06→23:05)
[2016-11-06] MEDS: VANCOMYCIN 1 GM/NS 1 GM/250 ML IVPB IV SCH (13:28)
--- NOTE | 2016-11-06 15:20 | PROGRESS NOTE ---
DATE: 11/06/2016 SUBJECTIVE: Ms. Soriano is breathing better, feeling much better. She was sleeping when I came in the room easy to arouse. OBJECTIVE: Vital signs: Temperature 97.8 degrees, pulse 80, respirations 16, blood pressure 100/60. HEENT: Pupils are equal, round, CVP less than 6 cm. Lungs: Clear in all lung chavez. Cardiovascular: Regular rhythm, rate without murmur or S3. Urine output 1000 mL. DATA: White count 24,480 which has come down from 28,000, hematocrit 25, platelet count 356,000. Sodium 135, potassium 3.8, chloride 100, BUN 10, creatinine 0.6, calcium was 8.5, blood sugars have been good. Ms. Janeth Soriano presented on 11/04, she is a patient of Dr. Faby Brink, Dr. Ventura, she came with shortness of breath 66-year-old black female currently receiving chemotherapy for breast cancer metastatic to liver, received her last chemotherapy October 26. She also states that she receives possible Neupogen injection for low white count by her oncologist and she presented to the emergency room shortness of breath, productive cough sputum and chills for 3 days. She denied any known fever. Denies any headache, dizziness, chest pain, abdominal pain. Upon further evaluation emergency room she is found to have leukocytosis, white blood cell count 28,000, had low grade fever upon presentation 99.9, heart rate was 116, respirations 19, blood pressure 120/55, oxygen saturations was 86% on room air, was put on nasal cannula 3 L, oxygen saturations improved to 93%. Chest x-ray showed bilateral lower lobe pneumonia. Admitted for treatment. She is doing better clinically. PAST MEDICAL HISTORY: Review again. 1. Breast cancer metastasis liver, undergoing chemotherapy with Dr. Ventura. 2. Hypertension. SURGICAL HISTORY: She had a right total knee replacement, breast, liver biopsy, right chest port placement, port site looks good. PHYSICAL EXAMINATION: Vital Signs: Temperature 97.8 degrees, pulse 88, respirations 16, blood pressure 100/60. HEENT: Pupils are equal and round, CVP less than 6 cm. Lungs: Clear in all lung chavez. Cardiovascular: Regular rhythm and rate without murmur, S3. Abdomen: Soft. Skin: Is warm and dry. LAB: Sodium 135, potassium 3.8, chloride 100, bicarb 23, BUN 10, creatinine 0.6. White count 24,480, hematocrit 25, platelet count 356,000. ASSESSMENT AND PLAN: 1. Acute hypoxemic respiratory failure. This has improved. 2. Bilateral upper lobe pneumonia considered to be healthcare-associated. Patient getting IV antibiotics. Continue present antibiotics and breathing treatments. 3. History of metastatic breast cancer to liver, HR positive, SD positive and HER-2 positive. Patient followed by Dr. Ventura. Her blood counts look good. 4. Sepsis on presentation which is improving. 5. Review of her orders she is on Levaquin 750 mg IV q.24 hours and she is on cefepime 1 g IV q.12, Lopressor 50 mg b.i.d., Protonix 40 mg IV daily, Protonix 40 mg a day, vancomycin 1 g q.24 hours. Continue present orders and medication. cc: Ian Jeong MD
[2016-11-06] MEDS: LOVENOX SUBQ SCH (23:03)
[2016-11-06] MEDS: PROTONIX IV SCH (23:05)
[2016-11-06] MEDS: LEVAQUIN 750 MG/D5W 750 MG/150 ML IVPB IV SCH (23:43)
[2016-11-07] MEDS: LOPRESSOR PO SCH ×2 (09:57→21:28)
[2016-11-07] MEDS: MAXIPIME 1 GM/NS 1 GM/50 ML IVPB IV SCH ×2 (10:56→22:31)
[2016-11-07 11:30] LABS: BASO% 0.4 % (0.0-0.8); EOS# 0.05 X1000 (0.0-0.7); EOS% 0.2 % (0.0-10.0); HEMATOCRIT 26.4 % (37.0-47.0); HEMOGLOBIN 8.2 g/dL (12.0-16.0); IMM GRAN% 4.2 % (0.0-0.5); LYMPH# 2.37 X1000 (1.2-3.4); LYMPH% 11.2 % (20.5-51.1); MANUAL DIFF NEEDED? YES; MCH 29.6 PG (27-31); MCHC 31.1 g/dL (33-37); MCV 95.3 FL (81-99); MONO% 6.6 % (1.7-9.3); NEUT% 77.4 % (42.2-75.2); PLT 308 X1000 (130-400); RBC 2.77 XMIL (4.2-5.4)
[2016-11-07 11:56] LABS: AGAP 10; ALKALINE PHOSPHATASE 193 U/L (32-104); BUN 10 mg/dL (8-22); CALCIUM 8.6 mg/dL (8.8-10.2); CHLORIDE 100 mmol/L (98-107); COSMO 268; GOT 50 U/L (10-30); GPT 15 U/L (10-36); POTASSIUM 4.2 mmol/L (3.5-5.1); SODIUM 134 mmol/L (136-145); TCO2 24 mmol/L (25-35); TOTAL BILIRUBIN 0.69 mg/dL (0.20-1.00); TOTAL PROTEIN 6.1 g/dL (6.3-8.3)
[2016-11-07 12:05] LABS: BANDS 4 % (0-1); EOS 6 % (1-10); LYMPHS 8 % (21-51); MONO 8 % (1-9)
[2016-11-07 12:06] LABS: HYPOCHROM 1+
--- NOTE | 2016-11-07 14:23 | PROGRESS NOTE ---
DATE: 11/07/2016 SUBJECTIVE: She feels better, breathing comfortably, asked about going home. I believe though talking oncology they want to restart her neoadjuvant chemotherapy on Monday. OBJECTIVE: Vital signs: Temperature is 98.3 degrees, pulse 79, respirations 18, blood pressure 89/47 and then another blood pressure later on 100/68, CVP less than 6 cm. Lungs: Clear in all lung chavez anterior and posterior. Cardiovascular: Regular rhythm and rate without murmur or S3. Abdomen: Soft. Skin: Is warm and dry. LAB: Reviewed. White count elevated 21,220 which is about what it has been, hematocrit 26, platelet count 308,000. Sodium 134, potassium 4.2, chloride 100, bicarb 24, BUN 10, creatinine 0.4, AST is 50, ALT is 15, alkaline phosphatase 123. ASSESSMENT AND PLAN: 1. Acute hypoxemic respiratory failure which is improved. 2. Bilateral upper lobe pneumonia which is improving as well. 3. History of metastatic breast cancer to the liver HR positive, CT positive, HER-[address] Ventura. I think they are going to restart the neoadjuvant therapy on Monday. 4. Sepsis improved.- She is on Levaquin 750 mg and cefepime 1 g IV q.12, Lopressor 50 mg b.i.d., Protonix 40 mg IV daily and is also getting vancomycin so Levaquin, cefepime and vancomycin. I do not see any change at this point. cc: Ian Jeong MD
[2016-11-07] MEDS: VANCOMYCIN 1 GM/NS 1 GM/250 ML IVPB IV SCH (14:39)
[2016-11-07] MEDS: PROTONIX PO SCH (21:27)
[2016-11-08] MEDS: LOVENOX SUBQ SCH (06:07)
[2016-11-08] MEDS: LEVAQUIN 750 MG/D5W 750 MG/150 ML IVPB IV SCH (06:07)
[2016-11-08] MEDS: MAXIPIME 1 GM/NS 1 GM/50 ML IVPB IV SCH ×2 (09:16→20:59)
[2016-11-08] MEDS: LOPRESSOR PO SCH ×3 (09:19→20:51)
--- NOTE | 2016-11-08 13:28 | PROGRESS NOTE ---
DATE: 11/08/2016 Ms. Soriano is feeling good. No complaints. Breathing comfortably. Temp 98.1 degrees, pulse 82, respirations 20, blood pressure 97/55.HEENT: Pupils are equal, round. Lungs: Are clear in all lung chavez. Cardiovascular: Regular rhythm and rate without murmur or S3. Abdomen: Soft. Skin is warm and dry. Good urine output. Weight 141 pounds. LAB: Looks good from yesterday. ASSESSMENT AND PLAN: 1. Acute hypoxemic respiratory failure which is improved. 2. Bilateral upper lobe pneumonia which is improving as well. 3. History of metastatic breast cancer with metastasis to the liver. To resume her neoadjuvant chemotherapy on Monday or tomorrow. Nutrition is good. I do not see any changes in the orders. cc: Ian Jeong MD
[2016-11-08] MEDS: VANCOMYCIN 1,500 MG in NS 250 ML IV SCH (17:31)
[2016-11-08] MEDS: PROTONIX PO SCH (20:51)
[2016-11-09] MEDS: LEVAQUIN 750 MG/D5W 750 MG/150 ML IVPB IV SCH (06:06)
[2016-11-09] MEDS: LOVENOX SUBQ SCH (06:07)
[2016-11-09] MEDS: LOPRESSOR PO SCH ×2 (09:15→22:53)
[2016-11-09] MEDS: MAXIPIME 1 GM/NS 1 GM/50 ML IVPB IV SCH ×2 (09:16→22:53)
[2016-11-09 10:20] LABS: BASO% 0.6 % (0.0-0.8); EOS% 0.5 % (0.0-10.0); HEMATOCRIT 27.4 % (37.0-47.0); HEMOGLOBIN 8.6 g/dL (12.0-16.0); IMM GRAN# 0.65 X1000 (0.0-0.04); IMM GRAN% 3.2 % (0.0-0.5); LYMPH# 3.27 X1000 (1.2-3.4); LYMPH% 15.9 % (20.5-51.1); MANUAL DIFF NEEDED? YES; MCH 30.3 PG (27-31); MCHC 31.4 g/dL (33-37); MCV 96.5 FL (81-99); MONO# 1.49 X1000 (0.11-0.59); MONO% 7.2 % (1.7-9.3); MPV 8.8 FL (7.4-10.4); NEUT% 72.6 % (42.2-75.2); PLT 249 X1000 (130-400); RBC 2.84 XMIL (4.2-5.4)
[2016-11-09 10:30] LABS: BANDS 1 % (0-1); EOS 2 % (1-10); LYMPHS 21 % (21-51); MONO 7 % (1-9)
[2016-11-09] MEDS ORDERED: BENADRYL IV ONE (10:30)
[2016-11-09] MEDS ORDERED: HERCEPTIN IV ONE (10:30)
[2016-11-09] MEDS ORDERED: TYLENOL PO ONE (10:30)
[2016-11-09] MEDS ORDERED: NS IV ONE (10:30)
[2016-11-09 10:44] LABS: AGAP 10; ALBUMIN 2.2 g/dL (3.5-5.0); ALKALINE PHOSPHATASE 183 U/L (32-104); BUN 9 mg/dL (8-22); CALCIUM 8.6 mg/dL (8.8-10.2); CHLORIDE 102 mmol/L (98-107); COSMO 269; GOT 51 U/L (10-30); GPT 17 U/L (10-36); POTASSIUM 3.6 mmol/L (3.5-5.1); SODIUM 135 mmol/L (136-145); TCO2 23 mmol/L (25-35); TOTAL PROTEIN 6.3 g/dL (6.3-8.3)
[2016-11-09] MEDS ORDERED: [UNRECOGNIZED DRUG - OTHER] IV ONE (11:00)
[2016-11-09] MEDS ORDERED: SODIUM CHLORIDE IV ONE (11:00)
--- NOTE | 2016-11-09 11:58 | PROGRESS NOTE ---
DATE: 11/09/2016 SUBJECTIVE: Ms. Soriano is sitting up in bed. No complaints. OBJECTIVE: Vital signs: Temperature is 98 degrees, heart rate 72, respirations 18, blood pressure 92/50. O2 is 99% on 2 L nasal cannula. General: Ms. Soriano is a very pleasant, 66-year- old, female, sitting up in bed in no acute distress. HEENT: Atraumatic, normocephalic. PERRLA. Neck: Supple. Trachea midline. CV: No murmurs, gallops, rubs noted. Respiratory: Lung sounds clear to auscultation. Nonlabored breathing. GI: Abdomen is soft, nontender, nondistended. Positive bowel sounds 4 quadrants. Extremities: Without edema. Neurologic: No focal deficits noted. LABORATORY DATA: Sodium 135, potassium 3.6, BUN 9, creatinine 0.5, blood glucose 97. WBC is 20, hemoglobin 8, hematocrit 27, platelet count is 249. ASSESSMENT AND PLAN: 1. Acute hypoxemic respiratory failure, resolved. 2. Bilateral upper lobe pneumonia, improving. Continue antibiotics. 3. History of metastatic breast cancer with metastasis to the liver. The patient was to resume her neoadjuvant chemotherapy today. The patient is eating well. We will continue to follow recommendations of hematology/oncology. 4. Further recommendations to follow physician evaluation. Dictated by KORY Johansen for Ian Jeong MD cc: Ian Jeong MD
[2016-11-09] MEDS: VANCOMYCIN 1,500 MG in NS 250 ML IV SCH (14:34)
[2016-11-09] MEDS: PROTONIX PO SCH (22:53)
[2016-11-10] MEDS: LEVAQUIN 750 MG/D5W 750 MG/150 ML IVPB IV SCH (06:06)
[2016-11-10 07:20] LABS: BASO% 0.6 % (0.0-0.8); EOS# 0.08 X1000 (0.0-0.7); EOS% 0.6 % (0.0-10.0); HEMATOCRIT 27.7 % (37.0-47.0); HEMOGLOBIN 8.4 g/dL (12.0-16.0); IMM GRAN# 0.35 X1000 (0.0-0.04); IMM GRAN% 2.5 % (0.0-0.5); LYMPH# 2.25 X1000 (1.2-3.4); LYMPH% 15.8 % (20.5-51.1); MANUAL DIFF NEEDED? NO; MCH 29.7 PG (27-31); MCHC 30.3 g/dL (33-37); MCV 97.9 FL (81-99); MONO% 9.8 % (1.7-9.3); MPV 8.9 FL (7.4-10.4); NEUT% 70.7 % (42.2-75.2); PLT 234 X1000 (130-400); RBC 2.83 XMIL (4.2-5.4)
[2016-11-10 07:42] LABS: AGAP 10; BUN 9 mg/dL (8-22); CALCIUM 8.7 mg/dL (8.8-10.2); CHLORIDE 108 mmol/L (98-107); COSMO 280; SODIUM 141 mmol/L (136-145); TCO2 23 mmol/L (25-35)
[2016-11-10] MEDS: LOVENOX SUBQ SCH (09:24)
[2016-11-10] MEDS: MAXIPIME 1 GM/NS 1 GM/50 ML IVPB IV SCH (09:24)
[2016-11-10] MEDS: LOPRESSOR PO SCH (09:24)
--- NOTE | 2016-11-10 13:46 | Diag Imaging Result Doc PS360 ---
EXAM: CHEST-2 VIEWS INDICATION: pneumonia TECHNIQUE: 2 views COMPARISON: 11/03/2016 FINDINGS: A right chest port is in stable position. The bilateral upper lung zone consolidations are essentially unchanged. No new consolidation is identified. There is minimal basilar atelectasis at the left costophrenic angle that is similar to the previous study. The cardiac silhouette is stable. IMPRESSION: Essentially stable chest. Electronically signed by Jaime Anand 11/10/2016 1:43 PM
--- NOTE | 2016-11-10 13:55 | DISCHARGE SUMMARY ---
ADMISSION DATE: 11/03/2016 DISCHARGE DATE: 11/10/2016 DOCTORS: Dr. Faby Brink and Dr. Ventura. HISTORY AND HOSPITAL COURSE: She presented with shortness of breath. Ms. Soriano is a 66-year-old black female, currently receiving chemotherapy for breast cancer, metastatic to the liver. Received her last chemotherapy on October 26. States that she received possibly some Neupogen injections for a low white blood cell count in oncologist's office. Presented to the ER complaining of shortness of breath, productive cough with white sputum, and chills for 3 days. She denies any known fever. Denies any headache, dizziness, chest pain, abdominal pain, nausea, vomiting, diarrhea, or constipation. Denied any dysuria or urinary frequency. Upon further workup in the ER, she was found to have leukocytosis. White blood cell count was 28,240. Did have a low-grade fever upon presentation at 99.9, heart rate 116, respirations 19, blood pressure 120/65, oxygen saturation was 86% on room air. She has since been placed on nasal cannula 3 L. O2 saturation improved to 93%. Her chest x-ray showed bilateral upper lobe pneumonia. The patient was admitted for treatment. She seemed to respond, improve the pneumonia and she was getting stronger, eating well. Oncology, Dr. Ventura wanted to resume neoadjuvant chemotherapy and that was done on November 09, 2016. She tolerated this well and felt she could go home. She has metastatic breast cancer, status post 1 out of 15. She will follow up with Dr. Ventura. DISCHARGE MEDICATIONS: We will discharge her on her Lopressor 50 mg b.i.d., Protonix 40 mg daily. Will check another chest x-ray today. I think we can stop her antibiotics. Also need to check and see about her O2, whether she needs O2 or not in preparations to get her home. cc: Ian Jeong MD
[2016-11-10] MEDS: VANCOMYCIN 1,500 MG in NS 250 ML IV SCH (14:14)
[2016-11-10 14:27] VITALS: BP 106/64
[2016-11-10 17:54] LABS: ALLEN TEST YES; BE 0.5 mmoll (-3.0-3.0); BLOOD TYPE ARTERIAL; DRAW SITE L RADIAL; METHB 0.4 % (0.0-1.5); O2(CT) 10.6 mL/dL (15.0-23.0); PCO2(98.6) 33 mmHg (35-45); PO2(98.6) 67 mmHg (60-100); SAMPLE BLOOD; SAO2 98.5 % (95.0-100.0); THB 7.9 g/dL (11.5-17.4); pH(98.6) 7.47 (7.35-7.45)
[2016-11-10 17:57] LABS: MODALITY ROOM AIR
--- NOTE | 2016-11-17 17:22 | PROVIDER DOCUMENTATION ---
This chart was entered by Linh Dunn Scribe, acting as scribe for Eduardo Sandy MD. HPI-Respiratory General - General Chief Complaint: Shortness of Breath Stated Complaint: SOB Time Seen by Provider: 11/03/16 20:03 Source: patient Allergies/Adverse Reactions: Patient Allergies Allergy/AdvReac Type Severity Reaction Status Date / Time No Known Allergies Allergy Verified 11/03/16 21:02 Home Medications: Home Medication List Medication Instructions Recorded Confirmed Last Taken Type Aspirin 325 mg PO DAILY 02/22/16 11/03/16 11/02/16 History Triamterene/Hydrochlorothiazid 1 each PO DAILY 02/22/16 11/03/16 11/02/16 History [Triamterene-Hctz 37.5-25 mg Cp] Metoprolol [Lopressor] 50 mg PO BID 09/14/16 11/03/16 11/02/16 History Pantoprazole [Protonix] 40 mg PO DAILY@0700 09/14/16 11/03/16 11/02/16 History - History of Present Illness-Resp Nature of Presenting Problem: 66 year old F presents to the ED with a cc of shortness of breath x3 days. PT is a cancer pt and just received chemo yesterday. PT states next round is Monday. Pt states that she has been coughing with sputum production that is white in color. Pt does have a fever on arrival in triage. Severity in ED: reports: mild Onset/Duration: reports: 3 days ago Timing: reports: still present Cough Quality/Degree: reports: mild, productive cough, sputum (white) Current Respiratory Medication Therapy: Initiated see nurses note Modifying Factors: improves with: nothing Associated Symptoms: reports: cough, shortness of breath Similar Symptoms Previously?: No Recently seen or treated by another doctor?: No Review of Systems - Adult - REVIEW OF SYSTEMS - ADULT Constitutional: reports: fever. denies: chills Eyes: reports: no symptoms reported Ears, Nose, Mouth & Throat: reports: no symptoms reported Cardiovascular: denies: chest pain, palpitations Respiratory: reports: cough, excessive sputum production, shortness of breath Gastrointestinal: denies: diarrhea, nausea, vomiting Genitourinary: reports: no symptoms reported Musculoskeletal: reports: no symptoms reported Integumentary: reports: no symptoms reported Neurological: reports: no symptoms reported Psychiatric: reports: no symptoms reported Endocrine: reports: no symptoms reported Hematologic/Lymphatic: reports: no symptoms reported Allergic/Immunologic: reports: no symptoms reported All Other Systems: Reviewed and Negative Past History - Adult - PAST MEDICAL HISTORY-ADULT Review of Records: reports: Nursing Assessment Review, Medications Reviewed Major Childhood Illnesses: reports: denies history Cardiovascular: reports: HTN Respiratory: reports: denies history Gastrointestinal: reports: cancer (liver) Obstetrical/Gynecological: reports: denies history Genitourinary: reports: denies history Musculoskeletal: reports: denies history Neurological: reports: denies history Endocrine/Immune: reports: denies history Other Conditions: reports: denies history - PRIOR SURGERIES/PROCEDURES Surgical/Procedure History: reports: none - IMMUNIZATION STATUS Childhood Immunizations: See Nurse Assessment Flu Vaccine: See Nurse Assessment - FAMILY HISTORY Family History: reviewed, not pertinent - SOCIAL HISTORY Smoking: non-smoker Substance Use: none/never Alcohol Use Frequency: never Physical Exam-General - PHYSICAL EXAM-ADULT Initial Vital Signs Reviewed: Yes - CONSTITUTIONAL General Appearance: appears well, alert, no apparent distress - RESPIRATORY Respiratory: rales (right lower lobe) - CARDIOVASCULAR Cardiovascular: tachycardia - GASTROINTESTINAL (ABDOMEN) Abdominal Exam: non tender, soft - SKIN Integumentary: normal color, normal turgor, warm/dry - PSYCHIATRIC Psych/Mental Status: normal mood/affect, normal thought content, normal thought process, oriented x 3 Progress - PLAN OF CARE/RESULTS Progress/Plan/Lab Results: Orders Category Date Time Status Admit - [facility] Routine AdmDCTranf 11/03/16 23:45 Ordered Cardiac Monitoring DIRECTED Care 11/03/16 20:06 Completed Oxygen Therapy- ED Nursing DIRECTED Care 11/03/16 20:06 Completed Saline Loc NOW Care 11/03/16 20:06 Completed CHEST-2 VIEWS [RAD] Stat Exams 11/03/16 20:06 Completed BLOOD CULTURE [BLDCUL] Stat Lab 11/03/16 22:15 Completed CBC WITH ELECTRONIC DIFF [HEME] Stat Lab 11/03/16 20:40 Completed CK PROFILE [SP CHEM] Stat Lab 11/03/16 20:40 Completed COMPREHENSIVE METABOLIC PANEL [CHEM] Stat Lab 11/03/16 20:40 Completed MAGNESIUM [CHEM] Stat Lab 11/03/16 20:40 Completed PRO B-NATRIURETIC PEPTIDE Stat Lab 11/03/16 20:40 Completed PROTIME WITH INR [COAG] Stat Lab 11/03/16 20:40 Completed PTT [COAG] Stat Lab 11/03/16 20:40 Completed TROPONIN T Stat Lab 11/03/16 20:40 Completed Aspirin Med 11/03/16 20:05 Discontinued 325 mg PO STAT STA CefEPIME 1 GM/NS [Maxipime 1 gm/Ns] Med 11/03/16 23:00 Discontinued 1 gm in 50 ml IV Q12H Levofloxacin 750 mg/D5w [Levaquin 750 mg/D5w] Med 11/03/16 23:00 Discontinued 750 mg in 150 ml IV Q24H EKG [EKG] Stat Ther 11/03/16 19:45 Draft Transfer/Admit Order [TRANSFER] Routine Transfer 11/03/16 22:03 Completed Result Diagrams: 11/10/16 06:40 11/10/16 06:40 - EKG 1 Time of EKG reading by physician:: 19:44 EKG Read and Signed by:: Eduardo Sandy EKG Interpretation (*Must complete 3 of following elements*): Abnormal Rate: 118 Rhythm: sinus tachycardia ST Wave: non-specific ST changes - XRAY 1 XRAY Study: Chest Impression: Abnormal XRAY Interpretation: bilateral interstital infiltrates: Dr. Sandy(ER MD) - CONSULTS/PCP/HOSPITALIST Notification #1 *Consult/PCP/Hospitalist*: Dr. Castrejon(Hospitalist) Time Discussed: 22:02 Consult Disposition: Admit Departure - Departure Date of Disposition Decision: 11/03/16 Time of Disposition Decision: 20:05 DIAGNOSIS: Pneumonia Disposition: ADMITTED INPATIENT 09 Certified Medical Emergency: Emergent Condition: Stable - Critical Care Note This patient required my direct & personal management of CC.: No Attestation - Physician/ RADHA Attestation The physician spent face to face time with patient:: Yes Advanced Practice Provider documentation review:: The physician spent face to face time with this patient and agrees with all MLP documentation, treatment, and medical decision making by the MLP. See provider notes for further information. This chart was documented by the indicated scribe, (Linh Dunn Scribe) and accurately reflects the services I performed and decisions made by Vika flores Christophe I, MD, as attested by the provider's signature.
== END 2016-11-10 19:30 | disposition home or self-care (01) ==
LOC: ED 19:35 → SUATTDRO 23:07 → 4N 23:07 → 3N 11-07 11:44
PROVIDERS: ATTEND Emergency Medicine

== ENCOUNTER 2019-04-12 02:01 | Inpatient (IN) ==
[2019-04-12] MEDS ORDERED: NS 1,000 ML IV ONE (02:31)
[2019-04-12] MEDS ORDERED: PEPCID IV ONE (02:31)
[2019-04-12] MEDS ORDERED: PROTONIX IV ONE (02:31)
[2019-04-12] MEDS ORDERED: SODIUM CHLORIDE 0.9% INJ ONE ×2 (02:32)
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
[2019-04-12 03:10] LABS: BASO# 0.03 X1000 (0.0-0.2); BASO% 0.3 % (0.0-0.8); EOS# 0.18 X1000 (0.0-0.7); EOS% 1.9 % (0.0-10.0); HEMATOCRIT 29.6 % (37.0-47.0); IMM GRAN# 0.02 X1000 (0.0-0.04); IMM GRAN% 0.2 % (0.0-0.5); LYMPH# 1.42 X1000 (1.2-3.4); LYMPH% 15.2 % (20.5-51.1); MCH 26.5 PG (27-31); MCHC 30.4 g/dL (33-37); MCV 87.3 FL (81-99); MONO% 5.3 % (1.7-9.3); MPV 10.4 FL (7.4-10.4); NEUT# 7.21 X1000 (1.4-6.5); NEUT% 77.1 % (42.2-75.2); PLT 208 X1000 (130-400); RBC 3.39 XMIL (4.2-5.4); RDW 15.3 % (11.5-14.5); WBC 9.36 X1000 (4.8-10.8)
[2019-04-12 03:14] LABS: INR 1.07; PROTIME 14.1 Seconds (11.0-16.0)
[2019-04-12 03:15] LABS: PTT 26.9 Seconds (22.3-41.8)
[2019-04-12 03:36] LABS: AGAP 14; ALB/GLOB RATIO 1.1; ALBUMIN 3.7 g/dL (3.5-5.0); ALKALINE PHOSPHATASE 174 U/L (32-104); BUN 22 mg/dL (8-22); CALCIUM 9.4 mg/dL (8.8-10.2); CHLORIDE 103 mmol/L (98-107); COSMO 293; CREATININE 0.9 mg/dL (0.5-0.9); ESTIMATED GFR > 60; GLUCOSE 153 mg/dL (70-104); GOT 41 U/L (10-30); GPT 25 U/L (10-36); POTASSIUM 3.2 mmol/L (3.5-5.1); SODIUM 144 mmol/L (136-145); TCO2 27 mmol/L (25-35); TOTAL PROTEIN 7.2 g/dL (6.3-8.3)
--- NOTE | 2019-04-12 04:30 | EKG Report ---
Test Performed on : 04/12/2019 03:11:55 AM Test Reason : VOMITING Blood Pressure : / mmHG Vent. Rate : 086 BPM Atrial Rate : 086 BPM P-R Int : 136 ms QRS Dur : 084 ms QT Int : 354 ms P-R-T Axes : 064 016 149 degrees QTc Int : 423 ms Normal sinus rhythm. T wave abnormality, consider lateral ischemia Abnormal ECG When compared with ECG of 03-NOV-2016 19:44, Inverted T waves have replaced nonspecific T wave abnormality in Lateral leads Unconfirmed Result
[2019-04-12 05:01] LABS: URINE SOURCE CLEAN CATCH
[2019-04-12 05:05] LABS: BILIRUBIN URINE NEGATIVE (NEGATIVE); BLOOD URINE NEGATIVE (NEGATIVE); COLOR YELLOW; GLUCOSE URINE NEGATIVE (NEGATIVE); KETONE URINE NEGATIVE (NEGATIVE); LEUKOCYTES URINE NEGATIVE (NEGATIVE); NITRITE URINE NEGATIVE (NEGATIVE); PROTEIN URINE NEGATIVE (NEGATIVE); SP GRAVITY URINE 1.023; TURBIDITY URINE CLEAR (CLEAR); UR EPITHELIAL CELLS <10 /HPF (<10); URINE BACTERIA NEGATIVE /HPF; URINE RBC <10 /HPF (<10); URINE WBC <10 /HPF (<10); UROBILINOGEN URINE 3 mg/dL (NORMAL)
--- NOTE | 2019-04-12 06:00 | Diag Imaging Result Doc PS360 ---
EXAM: CHEST-2 VIEWS HISTORY: short of breath TECHNIQUE: Two views COMPARISON: 11/10/2016 FINDINGS: The lungs are well expanded. Increased markings in the right apex representing scarring or small infiltrate. Minimal atelectasis or scarring in the left lung base. The heart is not enlarged. There is a right jugular portacatheter. No pneumothorax. The vessels are not distended. There are no infiltrates. No pleural effusions. IMPRESSION: Minimal basilar atelectasis or scarring. Small infiltrate or scarring in the right upper lobe. Electronically signed by Ayan Ortiz 04/12/2019 5:57 AM
[2019-04-12] MEDS ORDERED: TYLENOL PO PRN (07:28)
[2019-04-12] MEDS ORDERED: ZOFRAN IV PRN (07:28)
[2019-04-12] MEDS ORDERED: SODIUM CHLORIDE 0.9% INJ PRN (07:28)
[2019-04-12] MEDS ORDERED: PHENERGAN IV PRN (07:28)
[2019-04-12] MEDS ORDERED: NS 1,000 ML IV SCH (07:30)
[2019-04-12] MEDS ORDERED: PROTONIX 80 MG in NS 80 ML IV SCH (07:30)
[2019-04-12 07:59] LABS: HEMATOCRIT 27.6 % (37.0-47.0); HEMOGLOBIN 8.4 g/dL (12.0-16.0)
[2019-04-12 08:26] LABS: IRON SATURATION 20 %; TIBC 304 ug/dL; TOTAL IRON 61 ug/dL (49-151); UNBOUND IRON 243 ug/dL (112-346)
--- NOTE | 2019-04-12 08:48 | Diag Imaging Result Doc PS360 ---
ABDOMEN FLAT/UPRIGHT - 04/12/2019 INDICATION: vomiting blood COMPARISON: CT from 02/15/2019 FINDINGS: There is a nonobstructive bowel gas pattern. There are extensive dystrophic calcifications in the uterus stable from prior exams. No free air. No constipation. IMPRESSION: No acute disease. Electronically signed by Judson Shi 04/12/2019 8:46 AM
--- NOTE | 2019-04-12 08:50 | Diag Imaging Result Doc PS360 ---
EXAM: NECK AP AND/OR LAT SOFT TISSUE 04/12/2019 HISTORY: feels like something stuck when swallowing TECHNIQUE: AP and lateral soft tissue neck COMMENT: The epiglottis is not enlarged. There is no evidence of prevertebral soft tissue swelling. There is slight narrowing of the subglottic trachea visible on the lateral view. There are no previous studies available for comparison, however there was a similar appearance on the CT of the chest on 02/15/2019. No radiopaque foreign bodies are demonstrated. There is degenerative disc disease in the cervical spine with large anterior osteophytes particularly at the C6-7 level. IMPRESSION: No evidence of foreign body or prevertebral soft tissue swelling. Electronically signed by Krish Greer 04/12/2019 8:47 AM
[2019-04-12] MEDS: CARAFATE LIQUID PO SCH ×3 (10:21→20:51)
[2019-04-12] MEDS: NEURONTIN PO SCH (10:22)
[2019-04-12] MEDS: LOPRESSOR PO SCH ×2 (10:22→20:51)
[2019-04-12] MEDS: FEMARA PO SCH (10:22)
[2019-04-12] MEDS: LYRICA PO SCH (11:11)
[2019-04-12] MEDS ORDERED: VENOFER 200 MG in NS 100 ML IV ONE (11:25)
[2019-04-12] MEDS: FLONASE NAS SCH (11:58)
[2019-04-12] MEDS: CLARITIN PO SCH (11:58)
[2019-04-12] MEDS ORDERED: VENOFER 300 MG in NS 250 ML IV SCH (13:30)
--- NOTE | 2019-04-12 14:10 | PROGRESS NOTE ---
DATE: 04/12/2019 SUBJECTIVE: This morning, Ms. Soriano refers to be doing well. Ms. Soriano got admitted because she coughed up blood. She is really not quite sure if she coughed or she vomited it. In any case, the daughter, who was at the bedside, said she was having some issues with her sinuses. She pulled hard from her nose into her throat and when she coughed up, it was bloody. She came to the emergency department where she was evaluated and admitted for suspected GI bleed. This morning, she has not had any more of the incidence. OBJECTIVE: Vital signs: Blood pressure is 120/67, pulse of 81, respirations 20, temperature 98 degrees. General: Ms Soriano is a 69-year-old elderly female. She is in bed, no distress. HEENT: Mucosa is pink and moist. Anicteric. Acyanotic. She does have a bulky turbinate on the anterior turbinates on the on the right nostril. The nostril mucosa looks pale. There is a mild bleeding in the right nasal septum. Neck: Supple. Chest: Good air entry bilateral. There was no crepitations, no rhonchi. Cardiovascular: Regular rate and rhythm. Abdomen: Soft. Extremities: No pedal edema. Central nervous system: Patient is awake, alert, and oriented. LABORATORY DATA: Shows a normocytic anemia with iron deficiency. A ferritin level is 50. Folate is 6.8. IMAGING STUDIES: A chest x-ray on admission shows minimum basilar atelectasis scarring. There is a small infiltrate of scarring in the right upper lobe. A KUB showed no acute disease and neck x- ray showed no evidence of foreign body or soft tissue. ASSESSMENT: 1. Cough up blood, most likely coming from the upper airway. It looks like Ms Soriano has seasonal allergic rhinosinusitis which seems to be acting on and she pulled blood from the upper airway and coughed it up. Her hemoglobin seems to be fairly stable. We are going to continue to follow-up. I have started her on loratadine and Flonase nasal spray. She has also been started on PPI. We are pending cardiac GI evaluation. As I said, it does not appear that Ms Soriano is bleeding from the GI standpoint. 2. Normocytic anemia with iron deficiency. We will give the patient infusion of Venofer Heme-Onc has been consulted. 3. Folate deficiency. We will start replacing. 4. History of metastatic breast cancer to liver, which is HR positive, MA positive and HER2 positive.The patient follows up with Dr. Ventura, she is still on active chemotherapy. cc: Florentin Velasquez MD [facility]
[2019-04-12 14:20] LABS: HEMATOCRIT 24.9 % (37.0-47.0); HEMOGLOBIN 7.6 g/dL (12.0-16.0)
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
[2019-04-12 19:37] LABS: HEMATOCRIT 23.7 % (37.0-47.0); HEMOGLOBIN 7.4 g/dL (12.0-16.0)
--- NOTE | 2019-04-12 20:18 | HEMO/ONC CONSULTATION ---
DATE: 04/12/2019 We appreciate this consult. CHIEF COMPLAINT: Breast cancer. HISTORY OF PRESENT ILLNESS: Ms. Janeth Soriano is a 69-year-old female well known to Dr. Ventura with a history of metastatic mammary adenocarcinoma, triple positive. She is currently on Perjeta, Herceptin and Femara. She received cycle #37 on 04/03/2019. She is tolerating treatment well, and last scan revealed favorable response to treatment. The patient presented to the [facility] emergency department with reports of vomiting bright red blood. She states that she began to cough and vomited up a small blood clot. The patient has had no hematemesis since that time. Hemoglobin is currently stable at 8.4. Iron saturation is slightly decreased to 20%. The patient is resting comfortably in bed with no present complaints. PAST MEDICAL HISTORY: 1. Metastatic mammary adenocarcinoma, triple positive. 2. Iron-deficiency anemia. 3. Chronic kidney disease stage 3. 4. Hypertension. FAMILY HISTORY: Negative for any hematologic or oncologic disease. SOCIAL HISTORY: The patient does not currently use tobacco, alcohol or illicit drugs. She does have a history of smoking cigarettes. MEDICATIONS ON ADMISSION: 1. Aspirin 81 mg. 2. Femara 2.5 mg. 3. Gabapentin 300 mg. 4. Klor-Con 10 mEq. 5. Lyrica 150 mg. 6. Magic Mouthwash. 7. [place]. 8. Pantoprazole 40 mg. 9. Robaxin 500 mg. 10. Triamterene 37.5 mg/hydrochlorothiazide 25 mg. 11. Zofran 4 mg. ALLERGIES: The patient has no known drug allergies. REVIEW OF SYSTEMS: A 14-point review of systems was obtained and is negative except for as mentioned in HPI. PHYSICAL EXAMINATION: General: Ms. Soriano is a pleasant 69-year-old female lying supine in bed in no immediate distress. Vital Signs: Temperature 98, blood pressure 124/67, heart rate 94, and respirations are 20. O2 saturation is 99% on room air. HEENT: Normocephalic, atraumatic. Mucous membranes are pale and moist. Sclerae anicteric. Extraocular movements intact. Neck: Supple. Lungs: Clear to auscultation bilaterally. Chest expansion is equal bilaterally. CV: S1, S2 is heard without murmur rub or gallop. Abdomen: Nondistended. Extremities: No clubbing, cyanosis, or edema. Dermatologic: No rashes, bruises or lesions. Neurologic: The patient is awake, alert, and oriented x3. She has no focal deficit. LABORATORY DATA: Hemoglobin 8.4, hematocrit 27.6. White blood cell count is 9.36, platelets 208. Sodium 144 potassium 3.2, chloride 103. CO2 is 27, BUN 22, creatinine 0.9, glucose 153. Iron saturation 20%. B12 is 558, folate 6.8. Bilirubin 0.30, alkaline phosphatase 174, AST 41, ALT 25. Urinalysis is negative for UTI. ASSESSMENT AND PLAN: 1. Metastatic mammary adenocarcinoma, triple positive, on Perjeta, Herceptin and Femara. Cycle 37 was given on 04/03/2019. The patient is tolerating treatment well. Recent PET scan shows favorable response. 2. Globus pharyngeus. Gastroenterology has been consulted. Of note, the patient has a history of increased activity in the right lingual tonsil and nodes on PET scan in 2017, but most recent PET scan revealed no FDG avid neoplasm. 3. Hematemesis. Gastroenterology has been consulted. The patient has had no further episodes of hematemesis. EGD is planned at this time. 4. Acute on chronic anemia. Would continue to monitor CBC and transfuse to keep hemoglobin greater than 8.0. 5. Iron deficiency. We will give Venofer 300 mg x2 doses, 1 dose today and 1 dose tomorrow if the patient is still hospitalized. If she is deemed appropriate for discharge, we will give 2nd dose in clinic. 6. We will follow along with you and make further recommendations pending outcomes. The above reflects the history, exam and assessment/plan of Dr. Ventura. Dictated by KORY Tate for Gigi Ventura MD cc: KORY Tate MD
[2019-04-12] MEDS: FOLIC ACID PO SCH (20:51)
[2019-04-12] MEDS ORDERED: PROTONIX IV SCH (22:45)
[2019-04-12] MEDS ORDERED: KLOR-CON PO ONE (22:53)
[2019-04-12] MEDS ORDERED: SODIUM CHLORIDE 0.9% INJ SCH (23:00)
[2019-04-13] MEDS: CARAFATE LIQUID PO SCH ×2 (01:21→08:16)
[2019-04-13 01:32] LABS: HEMATOCRIT 24.6 % (37.0-47.0); HEMOGLOBIN 7.5 g/dL (12.0-16.0)
[2019-04-13 06:04] LABS: BASO# 0.02 X1000 (0.0-0.2); BASO% 0.4 % (0.0-0.8); EOS# 0.16 X1000 (0.0-0.7); EOS% 2.9 % (0.0-10.0); HEMATOCRIT 24.4 % (37.0-47.0); HEMOGLOBIN 7.6 g/dL (12.0-16.0); IMM GRAN# 0.05 X1000 (0.0-0.04); IMM GRAN% 0.9 % (0.0-0.5); LYMPH# 1.58 X1000 (1.2-3.4); LYMPH% 28.8 % (20.5-51.1); MCH 27.8 PG (27-31); MCHC 31.1 g/dL (33-37); MCV 89.4 FL (81-99); MONO% 7.3 % (1.7-9.3); MPV 10.5 FL (7.4-10.4); NEUT# 3.27 X1000 (1.4-6.5); NEUT% 59.7 % (42.2-75.2); PLT 164 X1000 (130-400); RBC 2.73 XMIL (4.2-5.4); RDW 15.4 % (11.5-14.5); WBC 5.48 X1000 (4.8-10.8)
[2019-04-13 06:12] LABS: AGAP 11; ALB/GLOB RATIO 0.9; ALBUMIN 3.1 g/dL (3.5-5.0); ALKALINE PHOSPHATASE 142 U/L (32-104); BUN 24 mg/dL (8-22); CALCIUM 8.7 mg/dL (8.8-10.2); CHLORIDE 107 mmol/L (98-107); COSMO 287; CREATININE 0.7 mg/dL (0.5-0.9); ESTIMATED GFR > 60; GLUCOSE 99 mg/dL (70-104); GOT 32 U/L (10-30); GPT 18 U/L (10-36); MAGNESIUM 1.6 mg/dL (1.5-2.7); POTASSIUM 3.6 mmol/L (3.5-5.1); SODIUM 142 mmol/L (136-145); TCO2 24 mmol/L (25-35); TOTAL BILIRUBIN 0.29 mg/dL (0.20-1.00); TOTAL PROTEIN 6.5 g/dL (6.3-8.3)
[2019-04-13 06:33] LABS: INR 1.04; PROTIME 13.8 Seconds (11.0-16.0)
[2019-04-13 06:34] LABS: PTT 29.6 Seconds (22.3-41.8)
[2019-04-13] MEDS ORDERED: PROTONIX IV SCH ×2 (07:21→09:00)
[2019-04-13] MEDS ORDERED: VENOFER 200 MG in NS 150 ML IV ONE (08:00)
[2019-04-13] MEDS: FOLIC ACID PO SCH (08:16)
[2019-04-13] MEDS: NEURONTIN PO SCH (08:16)
[2019-04-13] MEDS: LYRICA PO SCH (08:16)
[2019-04-13] MEDS: LOPRESSOR PO SCH (08:16)
[2019-04-13] MEDS: FEMARA PO SCH (08:16)
[2019-04-13] MEDS: FLONASE NAS SCH (08:17)
[2019-04-13] MEDS: CLARITIN PO SCH (08:17)
[2019-04-13 08:27] LABS: HEMATOCRIT 25.2 % (37.0-47.0); HEMOGLOBIN 7.7 g/dL (12.0-16.0)
[2019-04-13 08:41] VITALS: BP 102/64
--- NOTE | 2019-04-13 23:32 | DISCHARGE SUMMARY ---
ADMISSION DATE: 04/12/2019 DISCHARGE DATE: 04/13/2019 DISPOSITION: Home. FOLLOW-UP: 1. Dr. Ventura. 2. Dr. Faby Brink. 3. Dr. Feliz. CONSULTATION DURING THIS ADMISSION: 1. GI was consulted, patient was seen by Dr. Feliz. 2. Hematology/Oncology was consulted, patient was seen by Dr. Ventura. INVASIVE PROCEDURES DONE DURING THIS ADMISSION: None. IMAGING STUDIES OF SIGNIFICANCE: 1. A chest x-ray done on 04/12/2019 showed minimal basilar atelectasis or scarring. Small infiltrate or scarring of the right upper lobe. 2. A KUB done on 04/12/2019 showed no acute disease. 3. A soft tissue neck x-ray done on 04/12/2019 showed no evidence of foreign body or prevertebral soft tissue swelling. ADMISSION DIAGNOSIS: 1. Questionable upper GI bleed. 2. Anemia of acute blood loss. 3. Globus pharyngeus. 4. History of breast cancer. DIAGNOSIS AT THE TIME OF DISCHARGE: 1. Mild hemoptysis. 2. Allergic rhinosinusitis. 3. Globus pharyngeus. 4. Normocytic anemia with iron deficiency. 5. Folate deficiency. 6. History of metastatic breast cancer to liver with history of triple positive metastatic breast cancer to liver. Patient follows up with Dr. Ventura. DISCHARGE MEDICATIONS: 1. Triamterene with hydrochlorothiazide. 2. Aspirin 325 p.o. daily. 3. Metoprolol 50 mg b.i.d. 4. Herceptin 400 mg IV as needed. 5. Perjeta. 6. Gabapentin 300 p.o. daily. 7. Letrozole 2.5 p.o. daily. 8. Pregabalin 50 mg p.o. daily. 9. Iron sulfate 325 b.i.d. 10. Flonase nasal spray. 11. Folic acid 1 mg b.i.d. 12. Sheila-Colace 1 tab b.i.d. 13. Loratadine 10 mg p.o. daily. 14. Pantoprazole 40 mg p.o. daily. PRESENTING COMPLAINT: Feeling something in her throat, coughing up blood/vomiting blood. HISTORY OF PRESENTING COMPLAINT: Ms. Soriano is a 69-year-old female with triple positive breast cancer with metastasis to liver, follows up with Dr. Ventura on a regular regimen of chemotherapy, came in this time because she says she felt something stuck in her throat. She coughed up and it was blood. She has been having some stuffiness in her nose as well. Upon presenting, initially we thought it was vomiting blood, so she was evaluated for possible GI bleed. The patient was evaluated by Dr. Feliz who thought that this was probably upper airway related and that the patient did not have any acute ongoing GI blood losses. She was grouped and crossmatched but never transfused. Her hemoglobin did drop from 9 to about 7.4, however, progressively this has been coming up. This morning it is 7.6. The patient is also found to be remarkably iron deficient with a ferritin of 50, so she was given iron infusion twice during the hospital course. This morning, she refers to be doing a lot better. She says she had a bowel movement but it did not look bloody or dark. She feels a lot better. Dr. Feliz recommends for her to follow up with him for outpatient possible EGD. Ms. Soriano has not coughed up any more blood. Her nasal itching and stuffiness has significantly improved also with the nasal spray and Claritin. Ms Soriano is going to be discharged in stable condition. She will follow up with Dr. Ventura as well as Dr. Feliz. All the discharge instructions have been discussed with her. She voiced understanding. Time spent for discharge is 32 minutes. cc: MD Faby Disla MD Michael Kelso, MD Sammy Becdach, MD
== END 2019-04-13 11:17 | disposition home or self-care (01) | DRG 204 ==
LOC: ED 02:01 → 2N 07:48
PROVIDERS: ATTEND Internal Medicine

== ENCOUNTER 2019-06-16 22:34 | Observation (INO) ==
[2019-06-16] MEDS ORDERED: SODIUM CHLORIDE 0.9% INJ ONE (23:10)
[2019-06-16] MEDS ORDERED: PROTONIX IV ONE (23:10)
[2019-06-16 23:56] LABS: BASO# 0.05 X1000 (0.0-0.2); BASO% 0.8 % (0.0-0.8); EOS# 0.12 X1000 (0.0-0.7); EOS% 1.8 % (0.0-10.0); HEMATOCRIT 32.2 % (37.0-47.0); HEMOGLOBIN 10.2 g/dL (12.0-16.0); LYMPH# 1.14 X1000 (1.2-3.4); LYMPH% 17.2 % (20.5-51.1); MCH 27.6 PG (27-31); MCHC 31.7 g/dL (33-37); MONO# 0.49 X1000 (0.11-0.59); MONO% 7.4 % (1.7-9.3); MPV 9.8 FL (7.4-10.4); NEUT# 4.83 X1000 (1.4-6.5); NEUT% 72.8 % (42.2-75.2); PLT 137 X1000 (130-400); RDW 17.7 % (11.5-14.5); WBC 6.63 X1000 (4.8-10.8)
[2019-06-17 00:23] LABS: AGAP 11; ALB/GLOB RATIO 0.9; ALBUMIN 3.7 g/dL (3.5-5.0); ALKALINE PHOSPHATASE 206 U/L (32-104); BUN 19 mg/dL (8-22); CALCIUM 9.6 mg/dL (8.8-10.2); CHLORIDE 104 mmol/L (98-107); COSMO 288; CREATININE 0.7 mg/dL (0.5-0.9); ESTIMATED GFR > 60; GLUCOSE 109 mg/dL (70-104); GOT 43 U/L (10-30); GPT 32 U/L (10-36); LIPASE 52 U/L (13-60); POTASSIUM 2.9 mmol/L (3.5-5.1); SODIUM 143 mmol/L (136-145); TCO2 28 mmol/L (25-35); TOTAL PROTEIN 7.8 g/dL (6.3-8.3)
[2019-06-17 00:31] LABS: URINE SOURCE CLEAN CATCH
[2019-06-17 00:38] LABS: BILIRUBIN URINE NEGATIVE (NEGATIVE); BLOOD URINE NEGATIVE (NEGATIVE); COLOR YELLOW; GLUCOSE URINE NEGATIVE (NEGATIVE); KETONE URINE NEGATIVE (NEGATIVE); LEUKOCYTES URINE SMALL (NEGATIVE); NITRITE URINE NEGATIVE (NEGATIVE); PROTEIN URINE TRACE mg/dL (NEGATIVE); SP GRAVITY URINE 1.027; TURBIDITY URINE CLEAR (CLEAR); UR EPITHELIAL CELLS <10 /HPF (<10); URINE BACTERIA NEGATIVE /HPF; URINE RBC <10 /HPF (<10); UROBILINOGEN URINE 6 mg/dL (NORMAL)
[2019-06-17 00:52] LABS: INR 0.95; PROTIME 12.8 Seconds (11.0-16.0)
[2019-06-17] MEDS ORDERED: POTASSIUM CHLORIDE 10 MEQ/SWI 10 MEQ/100 ML IVPB IV ONE (00:52)
[2019-06-17 00:53] LABS: PTT 29.7 Seconds (22.3-41.8)
--- NOTE | 2019-06-17 01:02 | PROVIDER DOCUMENTATION ---
This chart was entered by Gris Escobar Scribe, acting as scribe for Laney Valenzuela MD. HPI-General Adult - General Chief Complaint: Vomiting Blood Stated Complaint: CANCER PT/SPITTINGUP BLOOD Time Seen by Provider: 06/16/19 23:08 Source: patient, family (daughter) Allergies/Adverse Reactions: Patient Allergies Allergy/AdvReac Type Severity Reaction Status Date / Time No Known Allergies Allergy Verified 06/16/19 22:51 Home Medications: Home Medication List Medication Instructions Recorded Confirmed Last Taken Type Aspirin 325 mg PO DAILY 02/22/16 06/16/19 02/07/18 History Metoprolol [Lopressor] 50 mg PO BID 09/14/16 06/16/19 02/07/18 History Pantoprazole [Protonix] 40 mg PO DAILY@0700 09/14/16 06/16/19 02/07/18 History Pertuzumab [Perjeta] 420 mg IV ORDERED 08/02/17 06/16/19 02/07/18 History Gabapentin 300 mg PO DAILY 04/12/19 06/16/19 Unknown History Letrozole 2.5 mg PO DAILY 04/12/19 06/16/19 Unknown History Pregabalin 50 mg PO DAILY 04/12/19 06/16/19 Unknown History Ferrous Sulfate 325 mg PO BID #240 tab 04/13/19 06/16/19 Unknown Rx Folic Acid 1 mg PO BID #120 tab 04/13/19 06/16/19 Unknown Rx Loratadine [Claritin] 10 mg PO DAILY #7 tab 04/13/19 06/16/19 Unknown Rx Sennosides/Docusate Sodium 1 ea PO BID #240 tab 04/13/19 06/16/19 Unknown Rx [Pericolace] Celecoxib 50 mg PO DAILY 06/16/19 06/16/19 Unknown History Potassium Chloride E.r. [Micro-K] 10 meq PO DAILY 06/17/19 06/17/19 Unknown History - History of Present Illness -Gen Adult Nature of Presenting Problems: Pt is a 69 yobf who was in the ED waiting room because her grandson was in a motorcycle accident and she started throwing up blood. Pt states that she felt something in her throat and then felt something come lose or unstuck and then she vomited up blood. Pt denies chest, abdomen, and back pain or tenderness. Pt denies nausea. Pt is being seen and per daughter "given antibiotic infusions for breast cancer". Pt's daughter states pt had this same type of episode the day of the [place] on 05/04/19. Pt is alert and nontoxic in appearance. Location of Pain/Injury: reports: none Pain Radiation: reports: no radiation Quality of Pain: reports: none Severity: reports: moderate Onset/Duration: reports: abrupt, 1-3 hours ago Timing: reports: still present, intermittent Context/Activities at Onset: reports: light activity Modifying Factors: improves with: nothing Associated Symptoms: reports: vomiting Similar Symptoms Previously?: Yes (05/04/19) Recently seen or treated by another doctor?: Yes (PCP ) Review of Systems - Adult - REVIEW OF SYSTEMS - ADULT ROS:: ROS per family Constitutional: denies: chills, fever Eyes: reports: no symptoms reported Ears, Nose, Mouth & Throat: reports: see HPI. denies: throat pain Cardiovascular: denies: chest pain, syncope Respiratory: denies: cough, shortness of breath Gastrointestinal: reports: see HPI, vomiting. denies: abdominal pain Genitourinary: reports: no symptoms reported Musculoskeletal: denies: back pain, muscle weakness Integumentary: reports: no symptoms reported Neurological: denies: headache/migraines, syncope Psychiatric: reports: no symptoms reported Endocrine: reports: no symptoms reported Hematologic/Lymphatic: reports: no symptoms reported Allergic/Immunologic: reports: no symptoms reported All Other Systems: Reviewed and Negative Past History - Adult - PAST MEDICAL HISTORY-ADULT Review of Records: reports: Old Records Reviewed, Nursing Assessment Review, Medications Reviewed, Social history reviewed & non-contributory. Major Childhood Illnesses: reports: denies history Cardiovascular: reports: HTN Respiratory: reports: denies history Gastrointestinal: reports: cancer (liver) Obstetrical/Gynecological: reports: denies history Genitourinary: reports: denies history Musculoskeletal: reports: denies history Neurological: reports: denies history Endocrine/Immune: reports: denies history Other Conditions: reports: denies history - PRIOR SURGERIES/PROCEDURES Surgical/Procedure History: reports: none - IMMUNIZATION STATUS Childhood Immunizations: See Nurse Assessment Flu Vaccine: See Nurse Assessment - FAMILY HISTORY Family History: reviewed, not pertinent - SOCIAL HISTORY Smoking: quit greater than 1 year Substance Use: denies Living Situation: family Physical Exam-General - PHYSICAL EXAM-ADULT Initial Vital Signs Reviewed: Yes (HR 107) - CONSTITUTIONAL General Appearance: appears well, alert, no apparent distress, obese - EYES Eyes: PERRL/EOMI - HEAD, EARS, NOSE, MOUTH & THROAT HENMT: normocephalic/atraumatic, moist mucous membranes - NECK Neck: non-tender, full range of motion, supple, normal inspection - RESPIRATORY Respiratory: chest non-tender, lungs clear, normal breath sounds, no pleuratic chest pain, no respiratory distress - CARDIOVASCULAR Cardiovascular: normal peripheral pulses, tachycardia - GASTROINTESTINAL (ABDOMEN) Abdominal Exam: normal bowel sounds, non tender, soft - MUSCULOSKELETAL Back Exam: normal inspection, no CVA tenderness, no vertebral tenderness Extremity: normal range of motion, non-tender, normal gait, normal inspection - SKIN Integumentary: normal color, normal turgor, warm/dry - PSYCHIATRIC Psych/Mental Status: normal mood/affect, normal thought content, normal thought process, oriented x 3 Progress - PLAN OF CARE/RESULTS Progress/Plan/Lab Results: Vital Signs - 8 hr 06/16/19 22:40 06/17/19 00:04 Temperature 98.7 F Pulse Rate 107 H 88 Respiratory Rate 18 17 Blood Pressure 167/83 163/88 O2 Sat by Pulse Oximetry 96 96 Laboratory Results - last 24 hr 06/16/19 23:47 WBC 6.63 RBC 3.70 L Hgb 10.2 L Hct 32.2 L MCV 87.0 MCH 27.6 MCHC 31.7 L RDW Std Deviation 17.7 H Plt Count 137 MPV 9.8 Immature Gran % (Auto) 0.0 Neut % (Auto) 72.8 Lymph % (Auto) 17.2 L Brule % (Auto) 7.4 Eos % (Auto) 1.8 Baso % (Auto) 0.8 Immature Gran # (Auto) 0.00 Neut # (Auto) 4.83 Lymph # (Auto) 1.14 L Brule # (Auto) 0.49 Eos # (Auto) 0.12 Baso # (Auto) 0.05 Orders Category Date Time Status Saline Loc NOW Care 06/16/19 23:08 Active CHEST-PORTABLE [RAD] Stat Exams 06/16/19 23:08 Taken CBC WITH ELECTRONIC DIFF [HEME] Stat Lab 06/16/19 23:47 Completed COMPREHENSIVE METABOLIC PANEL [CHEM] Stat Lab 06/16/19 23:47 Received LACTATE, PLASMA [CHEM] Stat Lab 06/16/19 23:50 Received LIPASE [CHEM] Stat Lab 06/16/19 23:47 Received PROTIME WITH INR [COAG] Stat Lab 06/16/19 23:47 Received PTT [COAG] Stat Lab 06/16/19 23:47 Received TYPE & SCREEN [BBK] Stat Lab 06/16/19 23:47 Received UA NIMS W/REFLEX CULT [URINALYSIS] Stat Lab 06/16/19 23:08 Uncollected Pantoprazole [Protonix] Med 06/16/19 23:10 Discontinued 40 mg IV NOW ONE Sodium Chloride 0.9% Med 06/16/19 23:10 Discontinued 10 ml INJ NOW ONE Result Diagrams: 06/16/19 23:47 06/16/19 23:47 - XRAY 1 XRAY Study: Chest Impression: See EMR Report - CONSULTS/PCP/HOSPITALIST Notification #1 *Consult/PCP/Hospitalist*: [place]inedo Time Discussed: 00:50 Consult Disposition: Admit (NPO and potassium replacement) Departure - Departure Date of Disposition Decision: 06/17/19 Time of Disposition Decision: 00:51 DIAGNOSIS: UGIB (upper gastrointestinal bleed), Hypokalemia Disposition: ADMITTED INPATIENT 09 Certified Medical Emergency: Emergent Condition: Stable Referrals and Follow-Ups: Gigi Ventura MD [Primary Care Provider] - - Critical Care Note This patient required my direct & personal management of CC.: No Attestation - Physician/ RADHA Attestation Patient care was provided by Advanced Practice Provider:: No The physician spent face to face time with patient:: Yes Advanced Practice Provider documentation review:: Supervising physician onsite and consulted in the evaluation and care of this patient. The physician did have a face to face encounter with the patient. This chart was documented by the indicated scribe, (Gris Escobar Scribe) and accurately reflects the services I performed and decisions made by me, Laney Valenzuela MD, as attested by the provider's signature.
[2019-06-17] MEDS ORDERED: NS 1,000 ML IV ONE (01:27)
[2019-06-17] MEDS ORDERED: NS 1,000 ML ONE (01:35)
--- NOTE | 2019-06-17 01:44 | HISTORY AND PHYSICAL ---
ADDENDUM: Ms. Janeth Soriano is a 69-year-old woman with stage 4 breast cancer and hypertension. She was last seen here in April of last year for upper GI bleed. At that time, no intervention was done. It was actually felt that she was bleeding from probably her upper airway. The patient was started on Celebrex and another NSAID by her oncologist recently and the patient came to our ER primarily to see her grandson in the ER but while she was waiting she felt something stick in her throat. She tried to clear her throat and subsequently regurgitated some bright red blood, a few clots. Denies any antecedent nausea or abdominal pain prior to this. She does not currently feel any lightheadedness or shortness of breath. She was also taking a full dose aspirin in addition to the Indocin and NSAID. She also admits to having frequent epistaxis and was told in the past that she will need to have a scope of her nasal passage. She, however, denies any postnasal drip or cough. So our plan will be admit patient, continue IV PPIs, discontinue aspirin, Celebrex and the Indocin we will leave the decision to either involve ENT versus GI to the primary team. If the intervention is not a priority maybe we can do an upper GI series. Follow hemoglobin and hematocrit in the morning. Her potassium was also noticeably low and we will replete this and check a magnesium. cc: Sanjeev Castrejon MD
[2019-06-17] MEDS ORDERED: TYLENOL PO PRN (04:41)
[2019-06-17] MEDS ORDERED: SODIUM CHLORIDE 0.9% INJ ONE (04:41)
[2019-06-17] MEDS ORDERED: ZOFRAN IV PRN (04:41)
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
[2019-06-17 07:09] LABS: BASO# 0.03 X1000 (0.0-0.2); BASO% 0.6 % (0.0-0.8); EOS# 0.15 X1000 (0.0-0.7); EOS% 2.8 % (0.0-10.0); HEMATOCRIT 30.9 % (37.0-47.0); HEMOGLOBIN 9.6 g/dL (12.0-16.0); LYMPH# 1.11 X1000 (1.2-3.4); LYMPH% 20.8 % (20.5-51.1); MCH 27.4 PG (27-31); MCHC 31.1 g/dL (33-37); MCV 88.3 FL (81-99); MONO# 0.33 X1000 (0.11-0.59); MONO% 6.2 % (1.7-9.3); NEUT# 3.71 X1000 (1.4-6.5); NEUT% 69.6 % (42.2-75.2); PLT 125 X1000 (130-400); RDW 17.8 % (11.5-14.5); WBC 5.33 X1000 (4.8-10.8)
--- NOTE | 2019-06-17 07:13 | Diag Imaging Result Doc PS360 ---
EXAM: CHEST-PORTABLE 06/16/2019 HISTORY: CP TECHNIQUE: Erect AP portable at 2320 COMMENT: The appearance of the chest has not changed significantly since 04/12/2019. IMPRESSION: Stable chest. Electronically signed by Krish Greer 06/17/2019 7:11 AM
[2019-06-17 07:32] LABS: IRON SATURATION 20 %; TIBC 249 ug/dL; TOTAL IRON 49 ug/dL (49-151); UNBOUND IRON 200 ug/dL (112-346)
[2019-06-17 07:36] LABS: AGAP 9; BUN 17 mg/dL (8-22); CALCIUM 9.1 mg/dL (8.8-10.2); CHLORIDE 105 mmol/L (98-107); COSMO 287; CREATININE 0.7 mg/dL (0.5-0.9); ESTIMATED GFR > 60; GLUCOSE 106 mg/dL (70-104); POTASSIUM 3.3 mmol/L (3.5-5.1); SODIUM 143 mmol/L (136-145); TCO2 29 mmol/L (25-35)
[2019-06-17 07:54] LABS: FERRITIN 430 ng/mL (13-150)
[2019-06-17] MEDS: LOPRESSOR PO SCH ×2 (08:36→20:44)
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
[2019-06-17] MEDS: NS 1,000 ML IV SCH ×2 (10:57→22:47)
[2019-06-17] MEDS: PROTONIX IV SCH (13:25)
[2019-06-17] MEDS: CARAFATE LIQUID PO SCH ×2 (13:25→20:44)
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
[2019-06-18] MEDS: SODIUM CHLORIDE 0.9% 10 ML ONE ×2 (00:03→22:31)
[2019-06-18] MEDS: PROTONIX IV SCH ×3 (00:03→22:31)
[2019-06-18] MEDS: CARAFATE LIQUID PO SCH ×2 (03:41→10:28)
[2019-06-18] MEDS ORDERED: DIPRIVAN 1% ONE ×2 (06:58→08:27)
[2019-06-18] MEDS ORDERED: XYLOCAINE-MPF 2% ONE (06:59)
[2019-06-18] MEDS ORDERED: FENTANYL ONE (07:00)
--- NOTE | 2019-06-18 08:44 | ENDOSCOPY OPERATIVE NOTE ---
[facility] ENDOSCOPY OPERATIVE NOTE , EGD PROCEDURE REPORT EXAM DATE: 06/18/2019 PATIENT NAME: Janeth Soriano MR#: [id number] BIRTHDATE: 1950 ATTENDING: Tai Feliz MD STATUS: inpatient [employer] REPRESENTATIVE: INDICATIONS: The patient is a 69 yr old female here for an EGD due to hematemesis. PROCEDURE PERFORMED: EGD w/ biopsy and EGD w/ band ligation of varices MEDICATIONS: Per Anesthesia ESTIMATED BLOOD LOSS: None CONSENT: The patient understands the risks and benefits of the procedure and understands that these r isks include, but are not limited to: sedation, allergic reaction, infection, perforation and/or bleeding. Alternative means of evaluation and treatment include, among others: physical exam, x-rays, and/or surgical intervention. The patient elects to proceed with this endoscopic procedure. DESCRIPTION OF PROCEDURE: During pre-op preparation period all mechanical and medical equipment was c hecked for proper function. Hand hygiene and appropriate measures for infection prevention was taken. After the risks, benefits and alternatives of the procedure were thoroughly explained, Informed consent was verified, confirmed and timeout was successfully executed by the treatment team. The patient was anesthetized with topical anesthesia and the [id number] ([id number]) endoscope was introduced through the mouth and advanced to the second portion of the duoden um. Retroflexion was performed in the stomach and revealed no abnormalities. The gastroscope was then slowly withdraw n and removed. The patient's toleration of the procedure was excellent. ESOPHAGUS: There were 4 columns of medium (Grade 3) sized varices in the lower third of the esophagus . There was evidence of a red ced sign. Bleeding prevention was attempted by placing three bands with incomplet e eradication. The z-line was noted at 35cm from the incisors. The z-line appeared normal. STOMACH: Multiple non-bleeding, linear and clean-based ulcers ranging between 3-7mm in size were foun d in the gastric antrum. Mild gastritis (inflammation) was found in the gastric antrum. A biopsy was performed usin g cold forceps. Sample sent for histology. No gastric varices. DUODENUM: The duodenum was normal. ADVERSE EVENTS: There were no complications. IMPRESSIONS: 1. There were 4 columns of medium sized esophageal varices and varices in the lower third of the esophagus; Hemostasis was attempted by placing three band on the bleeding site(s) 2. The z-line was noted at 35cm from the incisors 3. Multiple ulcers ranging between 3-7mm in size were found in the gastric antrum 4. Gastritis (inflammation) was found in the gastric antrum; biopsy was performed 5. The duodenum was normal RECOMMENDATIONS: 1. Await biopsy results 2. Regular diet 3. Start pantoprazole 40mg PO BID and continue for 3 months 4. Avoid aspirin and NSAIDs 5. Avoid ETOH 6. Continue to trend H/H daily, transfuse prn for goal hgb 7-8 7. Repeat EGD in 2-3 weeks per banding protocol 8. Will follow with you REPEAT EXAM: Return in 3 weeks for EGD. Tai Feliz MD eSigned: Tai Feliz MD 06/18/2019 8:43 AM CC: CPT CODES: 1. 41238 Upper gastrointestinal endoscopy including esophagus, stomach, and either th e duodenum and/or jejunum as appropriate; with biopsy, single or multiple 2. 32559 Upper gastrointestinal endoscopy including esophagus, stomach, and either the duodenum and/ or jejunum as appropriate; with band ligation of esophageal and/or gastric varices ICD CODES: 578.0 Hematemesis 456.1 Esophageal varices without mention of bleeding 535.50 Unspecified gastritis and gastroduodenitis (without hemorrhage) The ICD and CPT codes recommended by this software are interpretations from the data that the [facility] staff has captured with the software. The verification of the translation of this report to the ICD and CPT co court and modifiers is the sole responsibility of the health care institution and practicing physician where this report was generated. [employer] will not be held responsible for the validity of the ICD and CPT codes i ncluded on this report. [employer] assumes no liability for data contained or not contained herein. CPT is a registered tra [employer]ark of the [employer]. PATIENT NAME: Janeth Soriano MR#: [id number]
[2019-06-18] MEDS: LOPRESSOR PO SCH ×2 (10:27→22:31)
[2019-06-18] MEDS ORDERED: SODIUM CHLORIDE 0.9% 10 ML ONE ×2 (11:11→16:23)
--- NOTE | 2019-06-18 17:21 | PROGRESS NOTE ---
DATE: 06/18/2019 SUBJECTIVE: Ms. Soriano had a pretty good day. She has spit up a little bit more blood. [place] like she just got a little bit of meat stuck in the back of her throat. She underwent an EGD per Dr. Feliz and found esophageal varices so plan is to do a CT scan. PHYSICAL EXAMINATION: Vital Signs: Remains afebrile, temperature 97.6 degrees, pulse 68, respirations 18, blood pressure 149/61. HEENT: Pupils are equal and round. Lungs: Clear in all lung chavez. Cardiovascular: Regular rhythm and rate without murmur or S3. Input and Output: Urine output was 1200 mL. ASSESSMENT AND PLAN: 1. Upper gastrointestinal bleeding, hematemesis versus hemoptysis. Esophagogastroduodenoscopy showed esophageal varices. She has a history of metastatic breast cancer on chemotherapy. I think there is a history of alcohol use in the past; I do no know how extensive. The plan is to look at her liver a little closer. 2. Anemia, which is stable. Hematocrit 30, hemoglobin 9.6. 3. History of gastroesophageal reflux. 4. History of metastatic breast cancer. 5. History of alcohol abuse in the past by report. 6. History of tobacco use. REVIEW OF ORDERS: We have sent off for alpha-1 antitrypsin, SAULO, anti-mitochondrial, ceruloplasmin, hepatitis profile, smooth muscle antibodies. The patient on Protonix 40 mg IV every 12 hours, normal saline at 100 mL an hour. cc: Ian Jeong MD
--- NOTE | 2019-06-18 17:39 | Diag Imaging Result Doc PS360 ---
EXAM: US ABDOMEN-COMPLETE 06/18/2019 HISTORY: esophageal varices r/o cirrhosis TECHNIQUE: Abdominal ultrasound COMMENT: The liver is hyperechoic heterogeneous and nodular in contour. There is antegrade flow in the portal vein. The visualized portions of the aorta and inferior vena cava are within normal limits. There is a small amount of fluid in the subhepatic space. There is a stone near the gallbladder neck which measures at least 16 mm in size. There is no sonographic Cardenas sign or pericholecystic fluid. The stones appear to be movable. The pancreatic head is normal in appearance. The remainder is obscured. The common bile duct measures less than 5 mm. The kidneys are without evidence of hydronephrosis or mass. The spleen is enlarged measuring over 14 cm in two planes. IMPRESSION: Cirrhosis with splenomegaly and minimal ascites. Cholelithiasis without evidence of acute cholecystitis. Electronically signed by Krish Greer 06/18/2019 5:36 PM
[2019-06-19] MEDS: PROTONIX IV SCH ×2 (06:42→11:10)
[2019-06-19] MEDS: LOPRESSOR PO SCH (11:06)
--- NOTE | 2019-06-19 11:13 | GASTROENTEROLOGY PROGRESS NOTE ---
DATE: 06/19/2019 SUBJECTIVE: Ms. Soriano is a 69-year-old, female, resting in bed. The patient has denied any nausea, vomiting, or abdominal pain. She was able to tolerate her breakfast well. OBJECTIVE: Vital Signs: Temperature 98.3 degrees, pulse is 68, respirations 14, blood pressure 118/86, oxygen saturation 96% on room air. The patient's weight is 160 pounds, BMI is 28.4 kg/m2. General: She is alert and oriented x3, and in no acute distress. HEENT: Pale conjunctivae. No icterus. PERRL. Neck: Supple. Lungs: Clear to auscultation. Cardiovascular: Regular rate and rhythm. Abdomen: Soft, mildly distended, nontender. Active bowel sounds heard in all 4 quadrants. Extremities: No clubbing, no cyanosis, no edema. Pedal pulses 2+ present bilaterally. Neurologic: She is alert and oriented x3. IMAGING AND LABORATORY DATA: Her hematology is from 06/17/2019. WBCs 5.33, RBC 3.50, hemoglobin 9.6, hematocrit is 30.9, platelet count is 10,000. Chemistries are also from 06/17/2019. Sodium is 143, potassium 3.3, chloride 105, carbon dioxide 29, anion gap 9, BUN 17, creatinine is 0.7, glucose is 106, calcium is 9.1. The patient had an abdominal ultrasound done yesterday, which showed cirrhosis with splenomegaly and minimal ascites, cholelithiasis without evidence of acute cholecystitis. IMPRESSION AND PLAN: 1. Gastrointestinal bleed. 2. Anemia. 3. Gastroesophageal reflux disease. 4. Breast cancer. 5. Alcohol abuse. 6. Tobacco abuse. PLAN: Ms. Soriano is a 69-year-old, female with a history of breast cancer, which has metastasized to the liver. The patient is following Dr. Ventura for her chemotherapy. GI is following her for her GI bleed. We did an EGD yesterday, and the findings were that the patient had 4 columns of medium-sized esophageal varices and varices in the lower third of the esophagus. Hemostasis was attempted by placing 3 bands on the bleeding sites. Multiple ulcers ranging between 3 to 7 mm in size were found in the gastric antrum. Gastritis was found in the gastric antrum. Biopsy has been performed. The duodenum was normal. We are awaiting the pathology results of the biopsies. Patient's SAULO reflex, antimitochondrial antibody, anti smooth muscle antibodies, and hepatitis profile are all negative. We will continue the patient with Protonix 40 mg p.o. twice a day, and continue it for 3 months. The patient has been advised to avoid aspirin and NSAID products, and avoid alcohol. She will need a repeat EGD in 2 to 3 weeks per banding protocol. She has discharge orders for today. Her f/u appointment with Dr. Feliz is on 07/03/2019. We will follow her up as an outpatient. This plan was discussed with Dr. Feliz. Please call us for any further questions or concerns. Dictated by KORY Layne for Tai Feliz MD [facility]
[2019-06-19] MEDS: NS 1,000 ML IV SCH (11:14)
[2019-06-19 11:18] VITALS: BP 149/74
[2019-06-19 12:33] LABS: HEPATITIS PROFILE ACUTE SEE COMMENTS
--- NOTE | 2019-06-19 14:33 | DISCHARGE SUMMARY ---
ADMISSION DATE: 06/17/2019 DISCHARGE DATE: 06/19/2019 HOSPITAL COURSE: Patient of Dr. Faby Brink and Dr. Ventura. This is a 69-year-old black female with history of stage IV breast cancer, hypertension, gastroesophageal reflux disease, and arthritis. Recently was here in April 2019 for possible upper GI bleed, having an episode of hematemesis. She had another episode while she is in the emergency room. At the previous episode she was planning on getting a follow-up EGD, which never happened. Admitted to the hospital. She had an EGD done. They found esophageal varices and underlying hepatic cirrhosis. Suspect it was fatty liver cirrhosis. She had some banding done per Dr. Feliz and put on the banding protocol. She sees Dr. Ventura for chemotherapy. We will keep her on Protonix 40 mg twice a day and he will see her back every 2 to 3 weeks for banding protocol. DISCHARGE MEDICATIONS: She was discharged on the following medications: Lopressor 50 mg p.o. b.i.d., Protonix 40 mg p.o. twice a day and I think that is really all of her medications. We will hold her aspirin and celecoxib, which is Celexa. I will continue her iron 325 mg twice a day folic acid 1 mg twice a day. She can have her gabapentin 300 mg a day. Stop her Indocin. Letrozole 2.5 mg daily, Claritin 10 mg a day, and her Lyrica 100 mg a day. She takes Sheila-Colace 1 twice a day, triamterene hydrochlorothiazide 37.5-25 one a day. cc: Ian Jeong MD
== END 2019-06-19 15:25 | disposition home or self-care (01) ==
LOC: ED 22:34 → 4N 06-17 02:34 → SUATTDRO 06-17 02:34 → INTOOBSV 06-17 02:34
PROVIDERS: ATTEND Emergency Medicine